=== PATIENT | male | born 1940 | race Caucasian/White ===

== ENCOUNTER → 2023-09-15 14:47 | Outpatient (REF) | payer OTHER, SELFPAY | LOC: DHCBC MAIN 14:47 | PROVIDERS: ATTENDING PHYSICIAN Internal Medicine Cardiovascular Disease; FAMILY PHYSICIAN Internal Medicine | DX: I50.30 Unspecified diastolic (congestive) heart failure (principal) | CPT/HCPCS: 93306 ==

== ENCOUNTER 2023-10-06 20:12 | Inpatient (IN) | payer OTHER, SELFPAY ==
[2023-10-06 16:21] VITALS: BP 108/67
[2023-10-06 17:08] LABS: % Basophils 0.5 % (0-2); % Eosinophils 1.2 % (0-6); % Immature Granulocytes 0.4 % (0-0.5); % Lymphocytes 19.3 % (20.5-51.1); % Monocytes 9.8 % (1.7-9.3); % Neutrophils 68.8 % (42.2-75.2); Absolute Eosinophils 0.1 10^3/uL (0-0.7); Absolute Lymphocytes 1.6 10^3/uL (1.2-3.4); Absolute Monocytes 0.8 10^3/uL (0.1-0.6); Absolute Neutrophils 5.8 10^3/uL (1.4-6.5); Hematocrit 42.4 % (39.0-52.0); Mean Corpuscular Hgb 30.9 pg (27.0-31.0); Mean Corpuscular Volume 93.6 fL (80.0-94.0); Mean Platelet Volume 10.2 fL (7.4-10.4); Nucleated Red Blood Cells % 0 % (-); Platelet Count 147 10^3/uL (130-400); Red Blood Cell Count 4.53 10^6/uL (4.70-6.10); Red Cell Dist. Width 16.2 % (11.5-14.5); White Blood Cell Count 8.4 10^3/uL (4.8-10.8)
[2023-10-06 17:20] LABS: APTT 29.9 Sec (23.4-35.0)
[2023-10-06 17:21] LABS: ALT (SGPT) 32 U/L (0-50); AST (SGOT) 38 U/L (17-59); Albumin 3.4 g/dl (3.5-5.0); Alkaline Phosphatase 66 U/L (38-126); Blood Urea Nitrogen 43 mg/dl (9-20); Calcium 8.8 mg/dl (8.4-10.2); Carbon Dioxide 26 mmol/L (22-30); Chloride 107 mmol/L (98-107); Glucose 103 mg/dl (70-99); Sodium 135 mmol/L (135-145); Total Bilirubin 1.6 mg/dl (0.2-1.3); Total Protein 6.6 g/dl (6.3-8.2); eGFR 39.75
[2023-10-06 17:32] LABS: NT-proBNP 22600 pg/ml; Troponin I 0.033 ng/ml
--- NOTE | 2023-10-06 18:39 | ED.GENMED ---
History of Present Illness
General
Chief Complaint: Swelling
Source: patient and records
Exam Limitations: none
Time Seen by Provider: 10/06/23 18:21
Nursing documentation reviewed up to this point in time: agreed with
Travel History
Have you had any contact with someone who has COVID-19?: No
Do you have any symptoms of coronavirus? Fever > 100 degrees, chills, cough, shortness of breath, sore throat, loss of taste or smell, muscle aches, or headache?: No
History of Present Illness
History of Present Illness:
Patient is a very pleasant 83-year-old male with heart failure mitral valve disease status post replacement in 2017 in [facility], did well postoperatively except for some urinary urgency, ultimately his diuretic was stopped until recently it appears? He
says through through the fall up until about [place] he was very active could do an hour on the treadmill without symptoms he believes he had a virus or something around [place] since then he has had fatigue dyspnea on exertion weight gain leg
edema restarted on his diuretic recently, he is unsure of the dose, called his glass fitter today was referred to the ER for evaluation here he has JVD 2-3+ lower extremity edema able to complete full sentences
Past History
Past History
ED Past Medical History: CHF and Valvular disease
ED Past Surgical History: Cardiac (Mitral valve repair 2017 at [facility]) and Orthopedic
Social History
Tobacco: Non-smoker
Alcohol: None
Drug: None
Personal:
Living: with family
Employment: Retired
Review of Systems
Review of Systems
All Other Systems: Not applicable
Constitutional: Reports weight gain and fatigue; Denies fever
EENT: Reports no symptoms
Respiratory: Reports trouble breathing; Denies cough
Cardiac: Reports other (Dyspnea on exertion); Denies chest pain
ABD/GI: Reports no symptoms
: Reports no symptoms
Musculoskeletal: Reports edema
Skin: Reports no symptoms
Neurological: Reports no symptoms
Phy Exam
Physical Exam
Physical Exam:
Physical Exam
General: Pleasant 83 male
Neck: Positive JVD
Heart: Regular
Lungs: Faint crackle
Abdomen: Not
Neuro: alert and oriented. no focal neurological deficits
Skin: no rash
Psychiatric: well kept. interactive and cooperative
Extremities: 2-3+ edema
Scores
Heart Failure Risk
Heart Failure Risk Score: Yes
History of Stroke or TIA: No
History of intubation for respiratory distress: No
Heart rate on ED arrival >/= 110: No
SaO2 <90% on arrival on room air: No
HR >/=110 during 3min walk test (or too ill to perform test): Yes
ECG has acute ischemic changes: Yes
Urea >/=12mmol/L (BUN 33.6mg/dL): No
Serum CO2>/=35mmol/L: No
Troponin I or T elevated to FL Level (0.4mg/dL): No
NT-proBNP >/=5,000ng/L (5,000pg/ml): Yes
HF Risk Score: 5
Admission Status: VERY HIGH RISK 39.8% Consider admission to hospital
Course
Orders/Labs/Results
Orders:
Orders
10/06/23 16:26
Electrocardiogram (*1) Urgent
Reason for Study: Other
Other Reason for Exam: swelling
CR Chest - 2 Views Urgent
Comment:
Reason For Exam: swelling
10/06/23 16:27
EKG- Treatment ONCE
10/06/23 16:55
Complete Blood Count/With Diff Urgent
Comprehensive Metabolic Panel Urgent
NT-proBNP Urgent
PTT Urgent
Troponin I Urgent
10/06/23 18:38
Furosemide [Lasix] 60 mg IV NOW STA
Abnormal Lab Results
10/06/23
16:55
RBC 4.53 L 10^6/uL
(4.70-6.10)
RDW 16.2 H %
(11.5-14.5)
Absolute Monos (auto) 0.8 H 10^3/uL
(0.1-0.6)
Lymphocytes % 19.3 L %
(20.5-51.1)
Monocytes % 9.8 H %
(1.7-9.3)
BUN 43 H mg/dl
(9-20)
Creatinine 1.7 H mg/dL
(0.7-1.3)
Glucose 103 H mg/dl
(70-99)
Total Bilirubin 1.6 H mg/dl
(0.2-1.3)
Albumin 3.4 L g/dl
(3.5-5.0)
10/06/23 16:55
10/06/23 16:55
Vital Signs
Initial and Last Documented VS:
Initial Vital Signs
Temp Pulse Resp BP Pulse Ox
97.3 F 52 20 108/67 97
10/06/23 16:21 10/06/23 16:21 10/06/23 16:21 10/06/23 16:21 10/06/23 16:21
Last Documented Vital Signs
Temp Pulse Resp BP Pulse Ox
97.3 F 52 20 108/67 97
10/06/23 16:21 10/06/23 16:21 10/06/23 16:21 10/06/23 16:21 10/06/23 16:21
MDM/Problems Addressed
Differential Diagnosis Includes:
Heart failure pneumonia renal failure valvular disease pericardial effusion
MDM/Problems Addressed:
Weight gain and edema dyspnea on exertion
Chronic conditions affecting care:
Valvular disease heart failure
Acute Exacerbation and/or Progression of Chronic Illness:
Valvular disease heart
*Radiology
Radiology exam reviewed: preliminary read by ED provider
*Pulse Oximetry
Patient hypoxic: no
*EKG
Interpreted by ED Provider?: Yes
Interpretation: abnormal
Comparison EKG: no comparison EKG present
Heart Rate: 78
Rate: normal
Rhythm: sinus
QRS Pattern: right bundle branch block
Ischemia: non-specific ST changes
*Information Assurance Officer Interpretation
Rate: normal
Interpretation: normal
Heart Rate: 78
Rhythm: sinus
*Critical Care Note
Total Time (30-74mins, 75-104mins- exclusive of procedures): 10
Data Reviewed
Review of Other/Old Records Reveals: Labs, Records and Discharge Summary
Source: patient and records
Update Note
Update Note:
Update patient with significant weight gain looks volume overloaded despite oral diuretic, will start on IV diuretic chest x-ray pending proBNP noted
715 chest x-ray noted looks volume overloaded fits clinically message sent to hospitalist and glass fitter
ED Attending Note
-
Portions of this chart may have been created with voice recognition software.� Occasional wrong word or��sound alike� substitutions may have occurred due to the inherent limitations of voice recognition software.
Discharge Plan
Departure
Patient Disposition: Admit
Date of Disposition: 10/06/23
Time of Disposition: 19:17
Admit to: Telemetry
Presentation/result/management discussed w/ accepting MD/DO: Hospitalist
Patient with high blood pressure during this ER visit?: No
Condition: Fair
Covid-19: Not Applicable
Discharge Problem:
Pleural effusion, Acute on chronic diastolic congestive heart failure
Prescriptions:
No Action
carvedilol 6.25 MG tablet
6.25 mg PO BID Qty: 60 0RF
apixaban [Eliquis] 5 MG tablet
5 mg PO BID Qty: 30 0RF
diltiazem HCl 120 MG capsule,extended release 24hr
120 mg PO DAILY Qty: 30 0RF
furosemide 20 MG tablet
20 mg PO DAILY Qty: 30 0RF
Interventions
Interventions:
*Risk Screen - Suicide Last Done: 10/06/23 16:21
*General Assessment Last Done: 10/06/23 16:21
*Neglect/Abuse Screening Last Done: 10/06/23 16:21
[2023-10-06 18:45] VITALS: BP 102/48
--- NOTE | 2023-10-06 19:34 | HPS.HSE ---
Family Physician
-
Family Physician:
Chief Complaint
-
fatigue, Longo, peripheral edema
History of Present Illness
83M HX MVP , had Porcine Bioprosthetic MVR in 2017 ( [place]) doing will for last 5- 6yrs. He used treadmill dailyat Gym till [place] when he had Viral like URTI but not Covid. Last couple of months, noted gradually swollen b/l LExs, associated with
fatigue, effort intolerance 2/2 Longo. No productive cough. No CP.
Seen by Card Dr Lucero , initiated PO lasix 20 mg daily and carvedilol 3.125mg BID.
He followed up today with Dr Weiss, sent to ER for worsening CHF fale with POS EJD.
Report gained weight 14- 15 lbs over last 2-3 weeks
Denied prior HX CHF till 2 weeeks ago.
Medical History
Past Medical History
Past Medical History: Reports CHF and Valvular Disease (MVR in 2017 in [place] for MR )
Past Surgical History: Reports Cardiac (MVR in 2017 ) and Orthopedic
Social History
Tobacco: Non-smoker
Alcohol: None
Personal:
Living: With Family
Family History
Family History: Not pertinent
Allergies / Home Medications
Allergies reflects when Allergies were last updated in [employer].
Home Medications with original date entered in [employer]
Allergy/Medication List:
Allergies
Allergy/AdvReac Type Severity Reaction Status Date / Time
No Known Allergies Allergy Verified 10/06/23 16:21
Home Medications
furosemide 20 mg tablet 20 mg PO DAILY #30 tabs 02/24/17
carvedilol 3.125 mg tablet 3.125 mg PO BID 10/06/23
Review of Systems
-
Constitutional: Reports No Symptoms
EENT: Reports No Symptoms
Respiratory: Reports See HPI and Trouble Breathing
Cardiac: Reports See HPI
Abdomen/GI: Reports No Symptoms
: Reports No Symptoms
Musculoskeletal: Reports No Symptoms
Skin: Reports No Symptoms
Neurological: Reports No Symptoms
Endocrine: Reports No Symptoms
Hematologic/Lymphatic: Reports No Symptoms
Psych: Reports No Symptoms
Physical Exam
Vital Signs
Vital Signs
Temp Pulse Resp BP Pulse Ox
97.3 F 52 20 108/67 97
10/06/23 16:21 10/06/23 16:21 10/06/23 16:21 10/06/23 16:21 10/06/23 16:21
Physical Exam
General: No Apparent Distress
HEENT: Anicteric and PERRLA
Respiratory: Rales (Rt base ) and Other (symmetric AE)
Cardiac: S1/S2, Regular Rhythm, Murmur (soft systolic mm at apex ) and JVD (significant EJD )
Breast: Deferred by me
GI: Soft, Non Tender, Non Distended and Normal Bowel Sounds
Rectal: Deferred by Provider
Musculoskeletal: Edema, Right Upper Extremity (2+) and Edema, Left Lower Extremity (2+)
Skin: Warm
Neuro: AO x 3 and No Motor Deficits
Hematologic/Lymphatic: Lymphadenopathy
Psych: Calm and Intact Judgment/Insight
Laboratory Results
-
10/06/23 16:55
10/06/23 16:55
Laboratory Results
APTT 29.9 Sec (23.4-35.0) 10/06/23 16:55
Total Bilirubin 1.6 mg/dl (0.2-1.3) H 10/06/23 16:55
AST 38 U/L (17-59) 10/06/23 16:55
ALT 32 U/L (0-50) 10/06/23 16:55
Alkaline Phosphatase 66 U/L (38-126) 10/06/23 16:55
Troponin I 0.033 ng/ml 02/21/24 16:55
Data Reviewed
-
Diagnostic Radiology: Image Personally Visualized and interpreted
Medical Tests (Nuc Med, Echo, EKG etc): Report Reviewed by me
Lab Data: Labs Reviewed by me
Old Records: Reviewed
Impression/Plan
-
Vital Signs
Temp Pulse Resp BP Pulse Ox
97.3 F 52 20 108/67 97
10/06/23 16:21 10/06/23 16:21 10/06/23 16:21 10/06/23 16:21 10/06/23 16:21
Data
Nl CBC
K5
Cr 1.7 - 0.8 in 2017
eGFR 39
TB 1.6
Pending final CXR Report
pBNP 0.33
pBNP 50934
EKG
SINUS RHYTHM WITH FREQUENT PREMATURE VENTRICULAR COMPLEXES
LOW VOLTAGE QRS
INCOMPLETE RIGHT BUNDLE BRANCH BLOCK
LEFT ANTERIOR FASCICULAR BLOCK
CANNOT RULE OUT ANTERIOR INFARCT , AGE UNDETERMINED
T WAVE ABNORMALITY, CONSIDER LATERAL ISCHEMIA
ABNORMAL ECG
WHEN COMPARED WITH ECG OF 21-FEB-2017 10:36,
SIGNIFICANT CHANGES HAVE OCCURRED
2017 ECHO per DC summary
LVEF 55%.
Last hospitalist admission: 02/21/17 - 02/24/17 DC Dxs
1. Acute on chronic diastolic heart failure.
2. Mitral valve insufficiency.
3. Pleural effusion.
4. Atrial fibrillation.
ASSESSMENT & PLAN
fatigue, Longo, peripheral edema
Acute on subacute CHF - HF mixed HF vs HFpEF vs. Biventricular CHF
Report gained weight 14- 15 lbs over last 2-3 weeks
Hypotensive
HX MVR in 2017 [place]
In NSR - denied Af in the past
- IV Lasix
- Held carvedilol to give room for lasix and current hypotension for now
- daily BMP and LFTs
- daily Wt
- ECHO in AM
- B/L Liliane US to complete w/u
- CBC card consult
Hypotensive s/p IV Lasix
- Held carvedilol for now
- fall precaution
- will consider Midodrine
- Observing off BB or ARB
Renal insufficiency- Cardiorenal syndrome or pre renal TAVO
- Avoid nephrotoxic
- closely monitor RFTs
HX MVR in [place] 2016
- await ECHO
In NSR
DVT Px: LMWH
Code: Full code
IP TLM
[2023-10-06] MEDS: LASIX 60 MG IV (19:55)
[2023-10-06 20:15] LABS: COVID-19 Antigen Negative (Negative)
[2023-10-06 21:21] VITALS: BP 126/84; BMI 22.9
[2023-10-06 23:09] VITALS: BP 120/77
[2023-10-07 00:11] LABS: Troponin I 0.044 ng/ml
[2023-10-07 03:07] VITALS: BP 117/78
--- NOTE | 2023-10-07 03:54 | PTCARENOTE ---
Tele monitor alarming VTach. Pt having frequent runs of PVCs. Pt asymptomatic and VSS. BP 117/78, HR 78, 95% RA. CORINA Kruse notified. Instructed to get labs for morning. Will continue plan of care.
[2023-10-07 05:54] LABS: Troponin I 0.045 ng/ml
[2023-10-07 05:55] LABS: ALT (SGPT) 33 U/L (0-50); AST (SGOT) 59 U/L (17-59); Albumin 3.5 g/dl (3.5-5.0); Alkaline Phosphatase 82 U/L (38-126); Blood Urea Nitrogen 43 mg/dl (9-20); Carbon Dioxide 19 mmol/L (22-30); Chloride 110 mmol/L (98-107); Direct Bilirubin 0.5 mg/dl (0.0-0.4); Estimated Creatinine Clearance 35 ml/min; Glucose 74 mg/dl (70-99); HDL Cholesterol 38 mg/dl; LDL Cholesterol, Calculated 105 mg/dl; Magnesium 2.4 mg/dl (1.6-2.3); Potassium 4.5 mmol/L (3.5-5.1); Sodium 138 mmol/L (135-145); Total Bilirubin 2.2 mg/dl (0.2-1.3); Total Cholesterol 161 mg/dl (50-199); Total Protein 6.7 g/dl (6.3-8.2); Triglyceride 91 mg/dl (10-149); Very Low Density Lipoprotein 18 mg/dl (0-30); eGFR 46.19
[2023-10-07 06:00] VITALS: BMI 22.3
[2023-10-07 07:37] VITALS: BP 112/77
[2023-10-07 08:31] VITALS: BMI 22.3
--- NOTE | 2023-10-07 09:05 | W.PN.HOSP.TC ---
Today's Communication/Plan
-
Continue IV diuresis
Awaiting results of 2D echocardiogram
Had issues with carvedilol as outpatient
Assessment / Plan
Assessment / Plan
83M HX MVP , had Porcine Bioprosthetic MVR in 2016 ( [place]) doing will for last 5- 6yrs. He used treadmill dailyat� [employer] till [place] when he had� Viral like URTI but not Covid.
Last couple of months, noted gradually swollen b/l LExs, associated with fatigue, effort intolerance 2/2 Longo. No productive cough. No CP. Apparently had outpatient 2D echocardiogram showing moderately decreased ejection fraction from 2 weeks ago
under his prior name of Sabgretel
Seen by Card Dr Lucero , initiated PO lasix 20 mg daily and carvedilol 3.125mg BID.
He followed up today with Dr Weiss, sent to ER for worsening CHF fale with POS EJD.
Report gained weight 14- 15 lbs over last 2-3 weeks
Denied prior HX CHF till 2 weeeks ago.
ASSESSMENT & PLAN
fatigue, Longo, peripheral edema
Acute� on subacute CHF - HF mixed HF vs HFpEF vs. Biventricular CHF
Report gained weight 14- 15 lbs over last 2-3 weeks/lost 3 kg overnight with diuresis
Hypotensive
HX MVR in 2016 [place]
In NSR - denied Af in the past
- IV Lasix
- Held carvedilol� to give room for lasix and current hypotension for now
- daily BMP and LFTs
- daily Wt
- ECHO in AM but apparently was done under his prior name 2 weeks ago and showed significant reduction in EF
- B/L Liliane US to complete w/u was negative for DVT
- CBC card consult
Hypotensive s/p IV Lasix
- Held carvedilol for now
- fall precaution
- will consider Midodrine
- Observing off BB or ARB
Renal insufficiency- Cardiorenal syndrome ? Has some improvement after diuresis overnight
- Avoid nephrotoxic
-Creatinine now 1.5 from 1.7 on presentation
- closely monitor RFTs
HX MVR in 2016
- await� ECHO
In NSR
DVT Px: LMWH
Code: Full code
IP TLM
Anticipated Discharge: 24 - 48 hours
Subjective/Interval History
-
Date of Service: October 07, 2023
Seems to be breathing easier from initial presentation last night had brisk diuresis overnight and weight loss
Objective Data
-
Labs:
Laboratory Results
10/07/23
05:10
Sodium 138
Potassium 4.5
Chloride 110 H
Carbon Dioxide 19 L
BUN 43 H
Creatinine 1.5 H
Glucose 74
Calcium 9.0
Total Bilirubin 2.2 H
AST 59
ALT 33
Alkaline Phosphatase 82
Vital Signs:
Vital Signs
Temp Pulse Resp BP Pulse Ox
97.4 F 69 16 112/77 94
10/07/23 07:37 10/07/23 07:37 10/07/23 07:37 10/07/23 07:37 10/07/23 07:37
I&O
10/06/23 10/07/23 10/08/23
06:59 06:59 06:59
Output Total 1000 / 1000
Balance -1000 / -1000
Review of Systems
-
History Source: Patient
Constitutional: Reports Weight Gain
EENT: Reports No Symptoms Reported
Respiratory: Reports Trouble Breathing
Cardiac: Reports No Symptoms; Denies Palpitations
Physical Exam
-
Respiratory: Crackles
Cardiac: Irregular Rhythm (Frequent PVCs)
GI: Soft, Nontender and Nondistended
Neuro: Awake, Alert and Oriented
Psych: Calm
Data Reviewed
-
Total Time Spent with Patient (in minutes): 45
Labs: Labs Reviewed by me (Indeterminate troponin elevation of 0.044/bilirubin 2.2/creatinine trending down from 1.7-1.5 this morning)
--- NOTE | 2023-10-07 09:12 | W.PN.CD ---
Addendum entered and electronically signed by Manuel Lucero MD 10/07/23 12:37:
I saw and examined the patient.
The SHEET METAL FOREMAN's note was reviewed and I agree with the note.
Comment: 83M with newly discovered severe CM. He did not do well with outpatient Rx and is now admitted for treatment.
- Diurese to goal weight (unknown but around 140 lbs per patient)
- Add GDMT as possible with BP
- Eventual left heart catheterization (no obstructive CAD in 2017)
- There is a question of atrial thrombus -> I will add apixaban 2.5 po BID now & hold for [facility] (timing TBD). NEVAEH AM
.
Addendum entered and electronically signed by CORINA Haynes 10/07/23 10:28:
I discussed all with his Fernando.
Original Note:
Today's Communication / Plan
-
-increase lasix to BID
-resume coreg
-eventual GDMT
Impression / Plan
-
Assessment/Plan: 83 y/o male (patient of Dr. Lucero) who first was seen in our office in 2017 with new AF and severe MR due to MVP. He was living in [facility] and had tissue MVF. AF resolved and he did not take AC. He recently resumed seeing
Jazmine 09/15/23 and echo was profoundly abnormal- see below. Coreg and lasix were started, but he had worsened dyspnea, orthopnea, edema, and fatigue. Renal function worsened as well. He is now here for inpatient management of CHF.
Iyphi-dh-dihnsky HFrEF: improving with diuresis
-feeling improved- weight down, SOB better, edema better
-echo 09/15/23: Severely reduced left ventricular systolic function. Global severe hypokinesis. Left ventricular ejection fraction is 10-15%.�Top normal right ventricular size with severely reduced systolic function. Severe biatrial
enlargement.�Bioprosthetic mitral valve replacement is structurally and functionally normal. Moderate tricuspid regurgitation.�The IVC is dilated and does not collapse, suggesting high filling pressure.�Estimated pulmonary artery pressure of 51 mmHg
assuming a right atrial pressure of 15 mmHg.
-IV diuresis, which requires intensive monitoring- increase to BID
-Coreg held for low BP's per Dr. Kenney- will resume since BP is currently acceptable and patient with ectopy on monitor
-Over time, GDMT as able
-reports dry weight at 130-135 lbs. Currently 142 lbs.
-CHF consult, sodium/fluid restriction
-consider ischemic eval
hx Bio MVR:
-stable by echo
Abnormal troponin:
-suspect non-ischemic myocardial injury in setting of CHF exacerbation
-can trend to peak
TAVO:
-creat 1.3 in early Sep as OP, came in at 1.7- improving with diuresis
Will call and update patient's at his request
Physical Exam
Vital Signs/Labs
Vital Signs
Temp Pulse Resp BP Pulse Ox
97.4 F 69 16 112/77 94
10/07/23 07:37 10/07/23 07:37 10/07/23 07:37 10/07/23 07:37 10/07/23 07:37
10/06/23 10/07/23 10/08/23
06:59 06:59 06:59
Actual Weight 64.637 kg
10/06/23 16:55
10/07/23 05:10
APTT 29.9 Sec (23.4-35.0) 10/06/23 16:55
Magnesium 2.4 mg/dl (1.6-2.3) H 10/07/23 05:10
Triglycerides 91 mg/dl (10-149) 10/07/23 05:10
LDL Cholesterol, Calc 105 mg/dl 10/07/23 05:10
VLDL Cholesterol, Calc 18 mg/dl (0-30) 10/07/23 05:10
HDL Cholesterol 38 mg/dl 10/07/23 05:10
10/06/23
16:55
Cfl-Z-Mgktksxczoz Pept [id number]
LAB Results
10/06/23 10/06/23 10/07/23
16:55 23:33 05:10
Troponin I 0.033 0.044 H* D 0.045 H*
Physical Exam
Constitutional: No acute distress
EENT: Anicteric
Cardiovascular: Rhythm & rate is regular and Pedal edema present (mild BLE edema)
Respiratory: Other (diminished to bases)
GI: Soft, Non tender and Normal bowel sounds
Neuro/Psych: AO x 3
Other: Skin (warm and dry)
Data Reviewed
-
Date of Service: October 07, 2023
EKG: Other (SR with ectopy)
X-Ray/CT/US/MRI/NUC/PET: Report Reviewed by me (Small to moderate right pleural effusion. Small left pleural effusion. On the frontal view, hazy increased opacity involving the left midlung, most likely representing fluid extending into the major
fissure when correlating with the lateral view.)
Medical Tests (PFT, Pathology etc): Report Reviewed by me (recent echo as noted. )
Labs: Labs Reviewed by me
[2023-10-07] MEDS: LASIX 40 MG IV ×2 (09:30→17:34)
[2023-10-07] MEDS: COREG 3.125 MG PO ×2 (10:59→20:23)
[2023-10-07 11:00] VITALS: BP 103/70
[2023-10-07 11:30] LABS: Troponin I 0.032 ng/ml
[2023-10-07 15:00] VITALS: BP 95/63
--- NOTE | 2023-10-07 16:34 | CM ---
Alert awake oriented patient who lives with his Fernando who lives in a 2 story home with 0 step to enter and 12 steps to bed and bathroom. He is independent in driving and in all activities of daily living.He was offered VN he declined need.No
adaptive devices.
No VN hx / No SNF history
Pharmacy Medicine [facility]
PCP DR Garibay
PLAN Home Declined VN
[2023-10-07 20:11] VITALS: BP 101/68
[2023-10-07] MEDS: ELIQUIS 2.5 MG PO (20:23)
[2023-10-07 23:31] VITALS: BP 110/72
[2023-10-08 03:47] VITALS: BP 102/70
[2023-10-08 05:57] LABS: Blood Urea Nitrogen 41 mg/dl (9-20); Calcium 8.6 mg/dl (8.4-10.2); Carbon Dioxide 25 mmol/L (22-30); Chloride 105 mmol/L (98-107); Estimated Creatinine Clearance 40 ml/min; Glucose 77 mg/dl (70-99); Magnesium 2.3 mg/dl (1.6-2.3); Potassium 3.9 mmol/L (3.5-5.1); Sodium 135 mmol/L (135-145); eGFR 54.85
[2023-10-08 06:00] VITALS: BMI 21.9
[2023-10-08 07:00] VITALS: BP 98/67
[2023-10-08] MEDS: DESENEX/MITRAZOL/ZEASORB 1 APPLIC TOPICAL ×2 (08:34→21:03)
[2023-10-08] MEDS: LASIX 40 MG IV (08:34)
[2023-10-08] MEDS: ELIQUIS 2.5 MG PO ×2 (08:35→21:03)
[2023-10-08] MEDS: FLUSH (NSS) 2 FLUSH IV (08:36)
--- NOTE | 2023-10-08 09:36 | W.PN.HOSP.TC ---
Today's Communication/Plan
-
Continues with IV diuresis but hold his carvedilol this morning due to to patient tolerance will defer to cardiology
Cardiorenal status continues to improve with diuresis
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
Assessment / Plan
Assessment / Plan
83M HX MVP , had Porcine Bioprosthetic MVR in 2016 ( [place]) doing will for last 5- 6yrs. He used treadmill dailyat� [employer] till when he had� Viral like URTI but not Covid.
Last couple of months, noted gradually swollen b/l LExs, associated with fatigue, effort intolerance 2/2 Longo. No productive cough. No CP. Apparently had outpatient 2D echocardiogram showing moderately decreased ejection fraction from 2 weeks ago
under his prior name of Sabella
Seen by Card Dr Lucero , initiated PO lasix 20 mg daily and carvedilol 3.125mg BID.
He followed up today with Dr Wesis, sent to ER for worsening CHF fale with POS EJD.
Report gained weight 14- 15 lbs over last 2-3 weeks
Denied prior HX CHF till 2 weeeks ago.
ASSESSMENT & PLAN
fatigue, Longo, peripheral edema
Acute� on subacute CHF - HF mixed HF vs HFpEF vs. Biventricular CHF
Report gained weight 14- 15 lbs over last 2-3 weeks/lost 3 kg overnight with diuresis
Hypotensive
HX MVR in 2016 [place]
In NSR - denied Af in the past
- IV Lasix
- Held carvedilol� to give room for lasix and current hypotension for now/continues to have issues with carvedilol due to intolerance albumin this morning
- daily BMP and LFTs
- daily Wt
- ECHO in AM but apparently was done under his prior name 2 weeks ago and showed significant reduction in EF/repeated yesterday and again shows EF of 20
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
- B/L Liliane US to complete w/u was negative for DVT
-NEVAEH this a.m./Eliquis held possible LHC
- CBC card consult
Hypotensive s/p IV Lasix
- Held carvedilol for now
- fall precaution
- will consider Midodrine
- Observing off BB or ARB
Renal insufficiency- Cardiorenal syndrome ? Has some improvement after diuresis overnight
- Avoid nephrotoxic
-Creatinine now 1.5 from 1.7 on presentation>> 1.3
- closely monitor RFTs
HX MVR in 2016
- await� ECHO
In NSR
DVT Px: LMWH
Code: Full code
IP TLM
Anticipated Discharge: 24 - 48 hours
Subjective/Interval History
-
Date of Service: October 08, 2023
Continues to state that he does not feel right while he is on carvedilol which started as an outpatient did not feel right there either after he takes it his feels that he is slurring his words. Blood pressure was low this morning and has been
held. Continues to have good diuretic output weight down to 63.2 kg
Objective Data
-
Labs:
Laboratory Results
10/08/23
05:04
Sodium 135
Potassium 3.9
Chloride 105
Carbon Dioxide 25
BUN 41 H
Creatinine 1.3
Glucose 77
Calcium 8.6
Vital Signs:
Vital Signs
Temp Pulse Resp BP Pulse Ox
97.8 F 76 17 98/60 97
10/08/23 07:00 10/08/23 08:34 10/08/23 07:00 10/08/23 08:34 10/08/23 07:00
I&O
10/07/23 10/08/23 10/09/23
06:59 06:59 06:59
Intake Total 960 / 960
Output Total 1000 / 1000 850 / 850
Balance -1000 / -1000 110 / 110
Review of Systems
-
History Source: Patient
All other systems: Not reviewed unless documented
Constitutional: Reports Weight Gain
EENT: Reports No Symptoms Reported
Respiratory: Reports Trouble Breathing
Cardiac: Reports No Symptoms
Physical Exam
-
General: Well Developed
HEENT: Normocephalic
Respiratory: Crackles
Cardiac: Irregular Rhythm
GI: Soft, Nontender and Nondistended
Genito-urinary: No Costovertebral Tender
Musculoskeletal: No Clubbing, Edema, Right Lower Extrem and Edema, Left Lower Extrem
Neuro: Awake, Alert and Oriented
Psych: Calm
Data Reviewed
-
Total Time Spent with Patient (in minutes): 45
Labs: Labs Reviewed by me (White count 8.4/BUN 41 creatinine has improved now down to 1.3)
--- NOTE | 2023-10-08 10:33 | CM ---
Patient out of room for testing today. CM will continue to follow for discharge planning needs.
Plan; TBD
[2023-10-08] MEDS: COREG PO (11:37)
--- NOTE | 2023-10-08 11:58 | W.PN.CD ---
Today's Communication / Plan
-
- Let's lower diuretic as he approaches dry weight. Hopefully, this will allow more GDMT
- add SLGT2i
- Reviewed NEVAEH and discussed with radiology re: CT vs MRI for characterization. MRI would be ideal but CT faster. Mr. Moreau is not sure he could tolerate MRI, so we will start with contrast CT
- continue apixaban
- no more carvedilol
Impression / Plan
-
Assessment/Plan: 83M with newly discovered severe CM. He did not do well with outpatient Rx was admitted for treatment. TTE/NEVAEH show LA mass on unclear etiology
Dthcm-ps-azpxyon HFrEF:
- Let's lower diuretic as he approaches dry weight. Hopefully, this will allow more GDMT
- daily weights, I/O, Cr
CM EF 10%
- carvedilol as above
- suspect we would see shock numbers if we got a cardiac index
- add SLGT2i
- eventual ARNi/MRA if possible
LA mass
- TTE reviewed and NEVAEH confirms mass. Clinically, thrombus makes the most sense but NEVAEH not classic for that
- Reviewed NEVAEH and discussed with radiology re: CT vs MRI for characterization. MRI would be ideal but CT faster. Mr. Moreau is not sure he could tolerate MRI, so we will start with contrast CT
- continue apixaban
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
Abnormal troponin:
- suspect non-ischemic myocardial injury in setting of CHF exacerbation
- eventual ischemic evaluation
TAVO: improving with diuresis
50 minutes of care including review of NEVAEH with Dr. Barreto and discussion with Dr. Patterson from radiology.
Subjective: He develops fatigue and anhedonia with carvedilol (tried twice). No CP or palps
Physical Exam
Vital Signs/Labs
Vital Signs
Temp Pulse Resp BP Pulse Ox
36.6 C 76 17 98/60 97
10/08/23 07:00 10/08/23 08:34 10/08/23 07:00 10/08/23 08:34 10/08/23 07:00
10/07/23 10/08/23 10/09/23
06:59 06:59 06:59
Actual Weight 142 lb 8 oz 139 lb 8 oz
10/06/23 16:55
10/08/23 05:04
APTT 29.9 Sec (23.4-35.0) 10/06/23 16:55
Magnesium 2.3 mg/dl (1.6-2.3) 10/08/23 05:04
Triglycerides 91 mg/dl (10-149) 10/07/23 05:10
LDL Cholesterol, Calc 105 mg/dl 10/07/23 05:10
VLDL Cholesterol, Calc 18 mg/dl (0-30) 10/07/23 05:10
HDL Cholesterol 38 mg/dl 10/07/23 05:10
10/06/23
16:55
Epy-H-Iipguwhjuru Pept 53012
LAB Results
10/06/23 10/06/23 10/07/23
16:55 23:33 05:10
Troponin I 0.033 0.044 H* D 0.045 H*
10/07/23
10:57
Troponin I 0.032 D
Physical Exam
Constitutional: No acute distress and Comfortable
EENT: Anicteric and Moist mucous membranes
Cardiovascular: Rhythm & rate is regular, Pedal edema is absent, Systolic murmur absent and Diastolic murmur absent
Respiratory: Respiratory effort normal
GI: Soft, Distention absent, Non tender and Normal bowel sounds
Neuro/Psych: Alert
Other: Skin
Data Reviewed
-
Date of Service: October 08, 2023
Echo: Tracing Personally Visualized and interpreted and Other (LA Mass as above)
[2023-10-08 12:42] VITALS: BP 143/71
[2023-10-08] MEDS: FARXIGA 10 MG PO (12:52)
[2023-10-08 15:00] VITALS: BP 98/62
[2023-10-08 19:30] VITALS: BP 113/58
[2023-10-08 23:39] VITALS: BP 102/57
[2023-10-09 03:20] VITALS: BP 105/67
[2023-10-09 06:00] VITALS: BMI 21.9
[2023-10-09 06:33] LABS: Blood Urea Nitrogen 48 mg/dl (9-20); Calcium 8.9 mg/dl (8.4-10.2); Carbon Dioxide 27 mmol/L (22-30); Chloride 104 mmol/L (98-107); Estimated Creatinine Clearance 34 ml/min; Glucose 87 mg/dl (70-99); Potassium 4.1 mmol/L (3.5-5.1); Sodium 135 mmol/L (135-145); eGFR 46.19
[2023-10-09 07:30] VITALS: BP 97/62
[2023-10-09] MEDS: FARXIGA 10 MG PO (08:48)
[2023-10-09] MEDS: ELIQUIS 2.5 MG PO ×2 (08:48→20:00)
[2023-10-09] MEDS: DESENEX/MITRAZOL/ZEASORB 1 APPLIC TOPICAL ×2 (08:48→20:00)
--- NOTE | 2023-10-09 09:15 | W.PN.HOSP.TC ---
Today's Communication/Plan
-
He remains with soft blood pressures
Off carvedilol
And no Lasix/24 hours/still appears fluid overloaded
Creatinine up to 1.5 after IV contrast should be monitored for the next 48 hours for 'postcontrast nephropathy
Assessment / Plan
Assessment / Plan
83M HX MVP , had Porcine Bioprosthetic MVR in 2016 ( [place]) doing will for last 5- 6yrs. He used treadmill dailyat� [employer] till when he had� Viral like URTI but not Covid.
Last couple of months, noted gradually swollen b/l LExs, associated with fatigue, effort intolerance 2/2 Longo. No productive cough. No CP. Apparently had outpatient 2D echocardiogram showing moderately decreased ejection fraction from 2 weeks ago
under his prior name of Sabgretel
Seen by Card Dr Lucero , initiated PO lasix 20 mg daily and carvedilol 3.125mg BID.
He followed up today with Dr Weiss, sent to ER for worsening CHF fale with POS EJD.
Report gained weight 14- 15 lbs over last 2-3 weeks
Denied prior HX CHF till 2 weeeks ago.
ASSESSMENT & PLAN
fatigue, Longo, peripheral edema
Acute� on subacute CHF - HF mixed HF vs HFpEF vs. Biventricular CHF
Report gained weight 14- 15 lbs over last 2-3 weeks/lost 3 kg overnight with diuresis
Hypotensive
HX MVR in 2016
In NSR - denied Af in the past
- IV Lasix
- Held carvedilol� to give room for lasix and current hypotension for now/continues to have issues with carvedilol due to intolerance albumin this morning
- daily BMP and LFTs
- daily Wt
- ECHO in AM but apparently was done under his prior name 2 weeks ago and showed significant reduction in EF/repeated yesterday and again shows EF of 20
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
- B/L Liliane US to complete w/u was negative for DVT
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
-Apixaban 2.5 twice daily
- CBC card consult
Hypotensive s/p IV Lasix
- Held carvedilol for now
- fall precaution
- will consider Midodrine
- Observing off BB or ARB
Renal insufficiency- Cardiorenal syndrome ? Has some improvement after diuresis overnight
- Avoid nephrotoxic
-Creatinine now 1.5 from 1.7 on presentation>> 1.3
- closely monitor RFTs
HX MVR in 2016
- await� ECHO
In NSR
DVT Px: LMWH
Code: Full code
IP TLM
Anticipated Discharge: 24 - 48 hours
Subjective/Interval History
-
Date of Service: October 09, 2023
Remains with borderline hyper hypotension/discussed results of CT and atrial thrombus.
Objective Data
-
Labs:
Laboratory Results
10/09/23
05:11
Sodium 135
Potassium 4.1
Chloride 104
Carbon Dioxide 27
BUN 48 H
Creatinine 1.5 H
Glucose 87
Calcium 8.9
Vital Signs:
Vital Signs
Temp Pulse Resp BP Pulse Ox
97.6 F 87 16 97/62 100
10/09/23 07:30 10/09/23 07:30 10/09/23 07:30 10/09/23 07:30 10/09/23 07:30
I&O
10/08/23 10/09/23 10/10/23
06:59 06:59 06:59
Intake Total 960 / 960 780 / 780
Output Total 850 / 850 1625 / 1625
Balance 110 / 110 -845 / -845
Review of Systems
-
History Source: Patient
All other systems: Not reviewed unless documented
Respiratory: Reports No Symptoms
Cardiac: Reports No Symptoms
Physical Exam
-
General: No Apparent Distress
HEENT: Normocephalic
Respiratory: Clear to Auscultation
Cardiac: Irregular Rhythm and Murmur
GI: Soft and Nontender
Musculoskeletal: Edema, Right Lower Extrem and Edema, Left Lower Extrem
Neuro: Awake, Alert, Oriented and AO x 3
Data Reviewed
-
Total Time Spent with Patient (in minutes): 45
Medical Tests (Nuc Med, Echo etc): Report Reviewed by me (CT of the chest/left atrial mass measuring 5.6 x 5.1 x 4.4 cm appears to conform to the shape of the left atrium left atrial thrombus)
Labs: Labs Reviewed by me (Creatinine 1.5 from 1.3)
[2023-10-09 11:21] VITALS: BP 105/70
--- NOTE | 2023-10-09 11:44 | W.PN.CD ---
Addendum entered and electronically signed by Aman Ramires MD 10/09/23 15:49:
I saw and examined the patient.
The OUTB[employer] SAL[employer] EXECUTIVE's note was reviewed and I agree with the note.
Comment: Heart failure is improving. 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
Original Note:
Today's Communication / Plan
-
continue Eliquis and Farxiga
Impression / Plan
-
Assessment/Plan: 83M with newly discovered severe CM. He did not do well with outpatient Rx was admitted for treatment. TTE/NEVAEH show LA mass on unclear etiology
Htdny-ot-xtyqmuz HFrEF:
- improved with diuresis.
- Lasix held for hypotension, monitor.
- daily weights, I/O, Cr
CM EF 10%
- did not tolerate carvedilol
- suspect we would see shock numbers if we got a cardiac index
- added Farxiga
- eventual ARNi/MRA if possible, though limited by renal insufficiency
LA mass
- TTE reviewed and NEVAEH confirms mass. Clinically, thrombus makes the most sense but NEVAEH not classic for that
- Chest CT shows left atrial mass conform to the shape of LA, represents LA thrombus rather than neoplasm
- continue Eliquis
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
Abnormal troponin:
- suspect non-ischemic myocardial injury in setting of CHF exacerbation
- eventual ischemic evaluation
TAVO: improving with diuresis
Subjective:
He developed fatigue and anhedonia with carvedilol (tried twice).
sleeping, easily aroused, denies cardiac symptoms
Physical Exam
Vital Signs/Labs
Vital Signs
Temp Pulse Resp BP Pulse Ox
97.5 F 86 16 105/70 95
10/09/23 11:21 10/09/23 11:21 10/09/23 11:21 10/09/23 11:21 10/09/23 11:21
10/08/23 10/09/23 10/10/23
06:59 06:59 06:59
Actual Weight 63.276 kg 63.304 kg
10/06/23 16:55
10/09/23 05:11
APTT 29.9 Sec (23.4-35.0) 10/06/23 16:55
Magnesium 2.3 mg/dl (1.6-2.3) 10/08/23 05:04
Triglycerides 91 mg/dl (10-149) 10/07/23 05:10
LDL Cholesterol, Calc 105 mg/dl 10/07/23 05:10
VLDL Cholesterol, Calc 18 mg/dl (0-30) 10/07/23 05:10
HDL Cholesterol 38 mg/dl 10/07/23 05:10
10/06/23
16:55
Ogd-H-Acqcbqqllgx Pept [id number]
LAB Results
10/06/23 10/06/23 10/07/23
16:55 23:33 05:10
Troponin I 0.033 0.044 H* D 0.045 H*
10/07/23
10:57
Troponin I 0.032 D
Physical Exam
Constitutional: No acute distress and Other (frail, elderly)
EENT: Anicteric
Cardiovascular: Rhythm & rate is regular
Respiratory: Respiratory effort normal
GI: Soft and Non tender
Neuro/Psych: AO x 3
Other: Skin (warm, dry)
Data Reviewed
-
Date of Service: October 09, 2023
Medical Decision Making: Reviewed Test Results
EKG: Tracing Personally Visualized and interpreted
X-Ray/CT/US/MRI/NUC/PET: Report Reviewed by me
Labs: Labs Reviewed by me
[2023-10-09 16:00] VITALS: BP 123/57
[2023-10-09 19:05] VITALS: BP 108/61
[2023-10-09 23:10] VITALS: BP 115/77
[2023-10-10 03:42] VITALS: BP 107/81
[2023-10-10 06:00] VITALS: BMI 21.9
[2023-10-10 07:00] VITALS: BP 111/70
[2023-10-10 07:33] LABS: Blood Urea Nitrogen 47 mg/dl (9-20); Calcium 9.4 mg/dl (8.4-10.2); Carbon Dioxide 27 mmol/L (22-30); Chloride 102 mmol/L (98-107); Estimated Creatinine Clearance 39 ml/min; Glucose 90 mg/dl (70-99); Sodium 136 mmol/L (135-145); eGFR 54.85
[2023-10-10] MEDS: DESENEX/MITRAZOL/ZEASORB 1 APPLIC TOPICAL ×2 (07:47→20:36)
[2023-10-10] MEDS: FARXIGA 10 MG PO (07:47)
[2023-10-10] MEDS: ELIQUIS 2.5 MG PO ×2 (07:47→20:36)
--- NOTE | 2023-10-10 08:06 | W.PN.CD ---
Addendum entered and electronically signed by Aman Ramires MD 10/10/23 08:20:
EP
Hx AFib
Short runs of AT seen
Frequent PVCs seen
Multiple couplets and short NSVT seen
Not sure his life expectancy is 1 year. Probably not an ICD candidate.
Original Note:
Today's Communication / Plan
-
Lasix 60 mg PO daily
Follow BMP
Continue SGLT2-I
Check urinalysis, urine very dark
Impression / Plan
-
Assessment/Plan: 83M with newly discovered severe CM. He did not do well with outpatient Rx was admitted for treatment. TTE/NEVAEH show LA mass on unclear etiology
Gaamd-jq-fgpmvdz HFrEF with a severe cardiomyopathy (etiology uncertain), LVEF 10%
- improved with diuresis.
- Will resume Lasix at new PO dose: 60 mg PO daily (had been held for Low BP)
- Still has some edema
- Will need to pick a goal weight at discharge
- GDMT so far: loop diuretic and SGLT2-I. He will not take/cannot tolerate HF BB. Later consider MRA, RAAS (ABDIRASHID-I/ARB/ARNI)
Dark urine
- Check urinalysis
LA mass
- TTE reviewed and NEVAEH confirms mass. Clinically, thrombus makes the most sense but NEVAEH not classic for that
- Chest CT shows left atrial mass conform to the shape of LA, represents LA thrombus rather than neoplasm. MRI would be best to suggest tissue characteristic (no role for tissue Dx at this time)
- continue Eliquis
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
Abnormal troponin:
- suspect non-ischemic myocardial injury in setting of CHF exacerbation
- eventual ischemic evaluation
TAVO: improving
Subjective:
No CP or dyspnea at rest. Notes dark urine.
Physical Exam
Vital Signs/Labs
Vital Signs
Temp Pulse Resp BP Pulse Ox
97.8 F 83 18 111/70 97
10/10/23 07:00 10/10/23 07:00 10/10/23 07:00 10/10/23 07:00 10/10/23 07:00
10/09/23 10/10/23 10/11/23
06:59 06:59 06:59
Actual Weight 63.304 kg 63.276 kg
10/06/23 16:55
10/10/23 06:42
APTT 29.9 Sec (23.4-35.0) 10/06/23 16:55
Magnesium 2.3 mg/dl (1.6-2.3) 10/08/23 05:04
Triglycerides 91 mg/dl (10-149) 10/07/23 05:10
LDL Cholesterol, Calc 105 mg/dl 10/07/23 05:10
VLDL Cholesterol, Calc 18 mg/dl (0-30) 10/07/23 05:10
HDL Cholesterol 38 mg/dl 10/07/23 05:10
10/06/23
16:55
Hcr-S-Yylwqufvsyo Pept [id number]
LAB Results
10/07/23
10:57
Troponin I 0.032 D
Physical Exam
Constitutional: No acute distress
Cardiovascular: Rhythm & rate is regular and Pedal edema present
Respiratory: Respiratory effort normal and Lungs clear to auscul.
GI: Soft and Distention absent
Data Reviewed
-
Date of Service: October 10, 2023
[2023-10-10] MEDS: LASIX 60 MG PO (08:10)
[2023-10-10 08:56] LABS: Urine Albumin 2+ (Neg - Trace); Urine Bilirubin 1+ (Negative); Urine Character Slightly Cloudy (Clear); Urine Color Brown; Urine Glucose 2+ (Negative); Urine Ketone 1+ (Negative); Urine Leukocyte 2+ (Negative); Urine Nitrite Positive (Negative); Urine Occult Blood 4+ (Negative); Urine Urobilinogen 1+ (Neg - 1+)
[2023-10-10 09:22] LABS: Urine Bacteria Moderate (Negative); Urine Red Blood Cell >100 /HPF (0-2); Urine White Cell 30-40 /HPF (0-5)
--- NOTE | 2023-10-10 09:22 | W.PN.HOSP.TC ---
Today's Communication/Plan
-
Cardiology initiating IV diuresis again
Monitoring blood pressure and renal status
Wound empirically started on antibiotic given urinalysis results and await culture
Assessment / Plan
Assessment / Plan
83M HX MVP , had Porcine Bioprosthetic MVR in 2017 ( [place]) doing will for last 5- 6yrs. He used treadmill dailyat� [employer] till when he had� Viral like URTI but not Covid.
Last couple of months, noted gradually swollen b/l LExs, associated with fatigue, effort intolerance 2/2 Longo. No productive cough. No CP. Apparently had outpatient 2D echocardiogram showing moderately decreased ejection fraction from 2 weeks ago
under his prior name of Sabella
Seen by Card Dr Lucero , initiated PO lasix 20 mg daily and carvedilol 3.125mg BID.
He followed up today with Dr Weiss, sent to ER for worsening CHF fale with POS EJD.
Report gained weight 14- 15 lbs over last 2-3 weeks
Denied prior HX CHF till 2 weeeks ago.
ASSESSMENT & PLAN
fatigue, Longo, peripheral edema
Acute� on subacute CHF - HF mixed HF vs HFpEF vs. Biventricular CHF
Report gained weight 14- 15 lbs over last 2-3 weeks/lost 3 kg overnight with diuresis
Hypotensive
HX MVR in 2016
In NSR - denied Af in the past
- IV Lasix
- Held carvedilol� to give room for lasix and current hypotension for now/continues to have issues with carvedilol due to intolerance albumin this morning
- daily BMP and LFTs
- daily Wt
- ECHO in AM but apparently was done under his prior name 2 weeks ago and showed significant reduction in EF/repeated yesterday and again shows EF of 20
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
- B/L Liliane US to complete w/u was negative for DVT
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
-Apixaban 2.5 twice daily
- CBC card consult
Hypotensive s/p IV Lasix
- Held carvedilol for now
- fall precaution
- will consider Midodrine
- Observing off BB or ARB
-Adding back furosemide October 10/continue to monitor creatinine closely
Renal insufficiency- Cardiorenal syndrome ? Has some improvement after diuresis overnight
- Avoid nephrotoxic
-Creatinine now 1.5 from 1.7 on presentation>> 1.3
- closely monitor RFTs
Abnormal urinalysis
-Reportedly had dark urine overnight
-Positive leukocyte esterase/4+ RBCs
-Would reflex to culture/placed on empiric antibiotic given symptomatology
HX MVR in 2016
In NSR
DVT Px: Eliquis
Code: Full code
IP TLM
Anticipated Discharge: 24 - 48 hours
Subjective/Interval History
-
Date of Service: October 10, 2023
No distress was noted to have a darkened urine on the floor with bloody patient self states that he was it was dark yellow to brown
Objective Data
-
Labs:
Laboratory Results
10/10/23
06:42
Sodium 136
Potassium 4.0
Chloride 102
Carbon Dioxide 27
BUN 47 H
Creatinine 1.3
Glucose 90
Calcium 9.4
Vital Signs:
Vital Signs
Temp Pulse Resp BP Pulse Ox
97.8 F 83 18 111/70 97
10/10/23 07:00 10/10/23 07:00 10/10/23 07:00 10/10/23 07:00 10/10/23 07:00
I&O
02/10/10/23 10/11/23
06:59 06:59 06:59
Intake Total 780 / 780 680 / 680
Output Total 1625 / 1625 350 / 350
Balance -845 / -845 330 / 330
Review of Systems
-
All other systems: Not reviewed unless documented
Respiratory: Reports No Symptoms
Cardiac: Reports Palpitations (I was excited after not seeing my daughter for the last 5 years she came to visit me)
Genitourinary: Reports No Symptoms
Skin: Reports No Symptoms
Physical Exam
-
HEENT: Normocephalic
Respiratory: Crackles
Cardiac: Irregular Rhythm and Other (Periods of nonsustained ventricular tachycardia/frequent PVCs)
Genito-urinary: Bloody Urine
Neuro: Awake
Data Reviewed
-
Total Time Spent with Patient (in minutes): 56
Labs: Labs Reviewed by me (Creatinine improved to 1.3/ urinalysis with positive leukocyte esterase and plus RBCs)
[2023-10-10] MEDS: STERILE WATER FOR INJECTION 10 ML IV (09:58)
[2023-10-10] MEDS: ROCEPHIN 1000 MG IV (09:58)
[2023-10-10 11:05] VITALS: BP 106/62
[2023-10-10 15:00] VITALS: BP 101/74
--- NOTE | 2023-10-10 18:00 | PTCARENOTE ---
Communicated with MD and Cradiology during shift regarding Pt intermittently coming up Vtach and NSR with PVC's on tele. Asymptomatic.
[2023-10-11] VITALS (7 sets, daily range): BP systolic 99–130; BP diastolic 64–81; BMI 21.8
[2023-10-11 05:57] LABS: Blood Urea Nitrogen 43 mg/dl (9-20); Calcium 8.5 mg/dl (8.4-10.2); Carbon Dioxide 25 mmol/L (22-30); Chloride 104 mmol/L (98-107); Estimated Creatinine Clearance 39 ml/min; Glucose 92 mg/dl (70-99); Potassium 3.8 mmol/L (3.5-5.1); Sodium 133 mmol/L (135-145); eGFR 54.85
--- NOTE | 2023-10-11 08:33 | W.PN.CD ---
Today's Communication / Plan
-
monitor on PO lasix and farxiga
increase eliquis to 5mg bid, and trend Cr
Impression / Plan
-
Assessment/Plan: 83M with newly discovered severe CM. He did not do well with outpatient Rx was admitted for treatment. TTE/NEVAEH show LA mass on unclear etiology
Fqmki-hw-tlcbkjl HFrEF with a severe cardiomyopathy (etiology uncertain), LVEF 10%
- improved s/p IV diuresis.
- monitor on lasix 60mg PO daily
- Still has some edema
- Will need to pick a goal weight at discharge
- GDMT so far: Farxiga 10mg daily. He will not take/cannot tolerate HF BB. Later consider MRA, RAAS (ABDIRASHID-I/ARB/ARNI): but suspect BP will limit.
LA mass
- TTE reviewed and NEVAEH confirms mass. Clinically, thrombus makes the most sense but NEVAEH not classic for that
- Chest CT shows left atrial mass conform to the shape of LA, represents LA thrombus rather than neoplasm. MRI would be best to suggest tissue characteristic (no role for tissue Dx at this time)
- continue Eliquis: Cr has improved so increase to 5mg bid
PVC's, NSVT
-EP records reviewed: not an ideal candidate for ICD
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
Abnormal troponin:
- suspect non-ischemic myocardial injury in setting of CHF exacerbation
- eventual ischemic evaluation
TAVO: improving
Subjective:
SOB and edema better.
Physical Exam
Vital Signs/Labs
Vital Signs
Temp Pulse Resp BP Pulse Ox
97.7 F 76 16 99/64 97
10/11/23 07:00 10/11/23 07:00 10/11/23 07:00 10/11/23 07:00 10/11/23 07:00
10/10/23 10/11/23 10/12/23
06:59 06:59 06:59
Actual Weight 63.276 kg
10/06/23 16:55
10/11/23 05:03
APTT 29.9 Sec (23.4-35.0) 10/06/23 16:55
Magnesium 2.3 mg/dl (1.6-2.3) 10/08/23 05:04
Triglycerides 91 mg/dl (10-149) 10/07/23 05:10
LDL Cholesterol, Calc 105 mg/dl 10/07/23 05:10
VLDL Cholesterol, Calc 18 mg/dl (0-30) 10/07/23 05:10
HDL Cholesterol 38 mg/dl 10/07/23 05:10
10/06/23
16:55
Fsz-K-Drijetbtlwd Pept [id number]
Physical Exam
Constitutional: No acute distress and Comfortable
EENT: Moist mucous membranes
Cardiovascular: Rhythm/rate is irregular, Pedal edema present, JVD present and Systolic murmur present
Respiratory: Respiratory effort normal and Lungs clear to auscul.
GI: Soft and Distention absent
Neuro/Psych: AO x 3
Data Reviewed
-
Date of Service: October 11, 2023
EKG: Other (Tele: NSR, PVC's, NSVT)
Labs: Labs Reviewed by me
[2023-10-11] MEDS: FARXIGA 10 MG PO (08:56)
[2023-10-11] MEDS: LASIX 60 MG PO (08:56)
[2023-10-11] MEDS: DESENEX/MITRAZOL/ZEASORB 1 APPLIC TOPICAL ×2 (08:57→19:33)
[2023-10-11] MEDS: STERILE WATER FOR INJECTION 10 ML IV (09:17)
[2023-10-11] MEDS: ELIQUIS 5 MG PO ×2 (09:17→19:32)
[2023-10-11] MEDS: ROCEPHIN 1000 MG IV (09:17)
[2023-10-11] MEDS: ELIQUIS PO (09:47)
--- NOTE | 2023-10-11 12:51 | W.PN.HOSP.TC ---
Today's Communication/Plan
-
diuresis
Labs in am
tubgrips
Assessment / Plan
Assessment / Plan
83M HX MVP , had Porcine Bioprosthetic MVR in 2017 ( [place]) doing will for last 5- 6yrs. He used treadmill dailyat� [employer] till [place] when he had� Viral like URTI but not Covid.
Last couple of months, noted gradually swollen b/l LExs, associated with fatigue, effort intolerance 2/2 Longo. No productive cough. No CP. Apparently had outpatient 2D echocardiogram showing moderately decreased ejection fraction from 2 weeks ago
under his prior name of Ramona
Seen by Card Dr Lucero , initiated PO lasix 20 mg daily and carvedilol 3.125mg BID.
He followed up today with Dr Weiss, sent to ER for worsening CHF fale with POS EJD.
Report gained weight 14- 15 lbs over last 2-3 weeks
Denied prior HX CHF till 2 weeks ago.
CVS: S1-S2 normal
Chest: CTA B/L
Abdomen: Soft, NT / Bowel sounds present
Extremities: B/L Pedal edema
CYLINDER HONER: Non focal exam
#Acute� on chronic CHF with REF
Report gained weight 14- 15 lbs over last 2-3 weeks/lost 3 kg overnight with diuresis
Hypotensive
HX MVR in 2016
Continue Lasix- changed to PO
Cannot tolerate beta-blockers or ABDIRASHID or ARNI or Aldactone secondary to hypotension
Continue Farxiga
Daily weights and BMP
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
Apixaban changed to 5 mg twice a day
#Renal insufficiency- Cardiorenal syndrome ? Has some improvement after diuresis
Creatinine now 1.5 from 1.7 on presentation>> 1.3
#Elevated gikuldaa-umh-JI type secondary to CHF. Eventually may need ischemic evaluation given cardiomyopathy also-type unknown
# Paroxysmal atrial fibrillation-2017 rhythm strips show A-fib
Patient was not on anticoagulation as outpatient for unclear reasons
2017 he was started on Eliquis at that admission and was discharged.
Patient states that after he got the mitral valve replaced at [facility] he was not discharged on Eliquis.
# History of NSVT-not a candidate for ICD per cardiology notes
#HX BIOPROSTHETIC MVR in [place] 2017
# History of right pleural effusion in 2017 status post removal of 1250 mL of fluid
Pathology negative for malignancy
#Abnormal urinalysis
Placed on empiric antibiotic given symptomatology
Await Cx
#DVT Px: Eliquis
#Code: Full code
Discussed with cardiology
Anticipated Discharge: Within 24 hours
Subjective/Interval History
-
Date of Service: October 11, 2023
Objective Data
-
Labs:
Laboratory Results
10/11/23
05:03
Sodium 133 L
Potassium 3.8
Chloride 104
Carbon Dioxide 25
BUN 43 H
Creatinine 1.3
Glucose 92
Calcium 8.5
Vital Signs:
Vital Signs
Temp Pulse Resp BP Pulse Ox
98.0 F 80 18 110/73 98
10/11/23 11:00 10/11/23 11:00 10/11/23 11:00 10/11/23 11:00 10/11/23 11:00
I&O
10/10/23 10/11/23 10/12/23
06:59 06:59 06:59
Intake Total 680 / 680 1320 / 1320
Output Total 350 / 350 350 / 350
Balance 330 / 330 970 / 970
[2023-10-12 03:40] VITALS: BP 106/70
[2023-10-12 06:00] VITALS: BMI 21.7
[2023-10-12 06:16] LABS: Blood Urea Nitrogen 41 mg/dl (9-20); Calcium 8.8 mg/dl (8.4-10.2); Carbon Dioxide 27 mmol/L (22-30); Chloride 101 mmol/L (98-107); Estimated Creatinine Clearance 42 ml/min; Glucose 91 mg/dl (70-99); Potassium 3.9 mmol/L (3.5-5.1); Sodium 133 mmol/L (135-145); eGFR > 60.00
[2023-10-12 07:00] VITALS: BP 102/72
--- NOTE | 2023-10-12 08:34 | W.PN.CD ---
Today's Communication / Plan
-
- no new cardiac recommendations. No objection to discharge
- MEDS: Lasix 60 po QD (new dose), Farxiga 10 po qd (new), Eliquis 5 po BID (new)
- Follow up: Noemi Doshi Oct 5 at 2:20
- We will try to add lisinopril 2.5 po qd at that visit if he is stable and labs OK
- We will enroll in cardiac rehab at that visit if he is amenable
- Labs: BMP in Oct 4
Impression / Plan
-
Assessment/Plan: 83M with newly discovered severe CM. He did not do well with outpatient Rx was admitted for treatment. TTE/NEVAEH show LA mass on unclear etiology
Tadvd-sl-dmakyfz HFrEF with a severe cardiomyopathy (etiology uncertain), LVEF 10% (LVEF 45% in 2017 & 2019)
- improved s/p IV diuresis of 10 lbs.
- monitor on lasix 60mg PO daily -> weight trending down slower.
- Still has some edema
- Will need to pick a goal weight at discharge
- GDMT
- Farxiga 10mg daily.
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
- in 2019, he was able to tolerate enalapril 2.5 po qd -> I will try to add as outpatient
- in 2019, he was intolerant to eplerenone (Headache)
LA mass
- Thrombus
- continue Eliquis: Cr has improved so increase to 5mg bid
PVC's, NSVT
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
Abnormal troponin:
TAVO: improving
Dispo
- no new cardiac recommendations. No objection to discharge
- MEDS: Lasix 60 po QD (new dose), Farxiga 10 po qd (new), Eliquis 5 po BID (new)
- Follow up: Noemi Doshi Oct 5 at 2:20
- We will try to add lisinopril 2.5 po qd at that visit if he is stable and labs OK
- We will enroll in cardiac rehab at that visit if he is amenable
- Labs: BMP in Oct 4
Subjective:
SOB and edema better. He is laying flat without difficulty
Laboratory Data
10/06/23 10/12/23
16:55 05:01
Hgb 14.0
Creatinine 1.2
Selected Entries
10/12/23
06:00 10/06/23
20:44
Actual Weight 138 lb 5 oz 148 lb 12.992
oz
Generic Name Dose Route Start Last Admin
Trade Name Freq PRN Reason Stop Dose Admin
Dapagliflozin 10 mg 10/08/23 12:15
Dapagliflozin (Farxiga) 10 Mg Tablet PO 11/05/23 12:14
DAILY WILFREDO
Furosemide 60 mg 10/10/23 09:00
Furosemide 20 Mg Tablet PO 11/07/23 08:59
DAILY WILFREDO
Apixaban 5 mg 10/11/23 08:45
Apixaban (Eliquis) 5 Mg Tablet PO 11/08/23 08:44
BID WILFREDO
Physical Exam
Vital Signs/Labs
Vital Signs
Temp Pulse Resp BP Pulse Ox
36.4 C 85 18 102/72 99
10/12/23 07:00 10/12/23 07:00 10/12/23 07:00 10/12/23 07:00 10/12/23 07:00
10/11/23 10/12/23 10/13/23
06:59 06:59 06:59
Actual Weight 138 lb 5 oz
10/06/23 16:55
10/12/23 05:01
APTT 29.9 Sec (23.4-35.0) 10/06/23 16:55
Magnesium 2.3 mg/dl (1.6-2.3) 10/08/23 05:04
Triglycerides 91 mg/dl (10-149) 10/07/23 05:10
LDL Cholesterol, Calc 105 mg/dl 10/07/23 05:10
VLDL Cholesterol, Calc 18 mg/dl (0-30) 10/07/23 05:10
HDL Cholesterol 38 mg/dl 10/07/23 05:10
10/06/23
16:55
Ifd-C-Krkeybyvspq Pept [id number]
Physical Exam
Constitutional: No acute distress
EENT: Anicteric
Cardiovascular: Rhythm & rate is regular, Pedal edema is absent, JVD pressure is normal and Systolic murmur absent
Respiratory: Respiratory effort normal, Lungs clear to auscul., Wheeze Absent and Rhonchi Absent
GI: Soft, Distention absent, Non tender and Normal bowel sounds
Neuro/Psych: Alert
Data Reviewed
-
Date of Service: October 12, 2023
[2023-10-12] MEDS: ELIQUIS 5 MG PO ×2 (09:20→20:33)
[2023-10-12] MEDS: LASIX 60 MG PO (09:20)
[2023-10-12] MEDS: FARXIGA 10 MG PO (09:20)
[2023-10-12] MEDS: DESENEX/MITRAZOL/ZEASORB 1 APPLIC TOPICAL ×2 (09:21→20:36)
[2023-10-12] MEDS: ROCEPHIN 1000 MG IV (09:27)
[2023-10-12] MEDS: STERILE WATER FOR INJECTION 10 ML IV (09:27)
--- NOTE | 2023-10-12 10:01 | W.HF.CON ---
Heart Failure
- LV Function
Left ventricular function study result: LV Ejection fraction </= 35%
Ejection Fraction Percentage: 10
- ARNI
Patient already on ARNI: No
Heart Failure ARNI Contraindication: Acute Renal Failure, Hypotension
- ACEI/ARB
Patient already on ACEI/ARB: No
Heart Failure ACEI/ARB Contraindication: Acute Renal Failure, Hypotension
- Beta Titus
Patient already on Evidence Based Beta Titus: No
Heart Failure Evidence Based Beta Titus: Patient Refusal (fatigue and anhedonia)
- Mineralocorticord Receptor Antagonist
Patient already on MRA: No
Heart Failure MRA Contraindication: Acute Renal Insufficiency, Hypotension
- SGLT-2 Inhibitor
Patient already on SGLT-2 Inhibitor: Yes
- NYHA CHF Classification
NYHA CHF Classification Level: Class III - Symptoms w/ min exertion, interferes w/ nml daily activity
- ACC/AHA Stage
ACC/AHA Stage: Stage C: Symptomatic Heart Failure
[2023-10-12 11:00] VITALS: BP 110/55
[2023-10-12 15:00] VITALS: BP 103/60
--- NOTE | 2023-10-12 16:23 | CM ---
Spoke with patient in room.
IMM given signed on chart.
Offered VN he declined,
He said he would drive him slef home .
PLAN Home declined needs
--- NOTE | 2023-10-12 17:15 | W.PN.HOSP.TC ---
Today's Communication/Plan
-
Pt requesting to go home in am
Assessment / Plan
Assessment / Plan
83M HX MVP , had Porcine Bioprosthetic MVR in 2017 ( [place]) doing will for last 5- 6yrs. He used treadmill dailyat� Gym till [place] when he had� Viral like URTI but not Covid.
Last couple of months, noted gradually swollen b/l LExs, associated with fatigue, effort intolerance 2/2 Long[place]. No productive cough. No CP. Apparently had outpatient 2D echocardiogram showing moderately decreased ejection fraction from 2 weeks ago
under his prior name of Ramona
Seen by Card Dr Lucero , initiated PO lasix 20 mg daily and carvedilol 3.125mg BID.
He followed up today with Dr Weiss, sent to ER for worsening CHF fale with POS EJD.
Report gained weight 14- 15 lbs over last 2-3 weeks
Denied prior HX CHF till 2 weeks ago.
CVS: S1-S2 normal
Chest: CTA B/L
Abdomen: Soft, NT / Bowel sounds present
Extremities: B/L Pedal edema
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
#Acute� on chronic CHF with REF
Report gained weight 14- 15 lbs over last 2-3 weeks/lost 3 kg overnight with diuresis
Hypotensive
HX MVR in 2016
Continue Lasix- changed to PO
Cannot tolerate beta-blockers or ABDIRASHID or ARNI or Aldactone secondary to hypotension
Continue Farxiga
Daily weights and BMP
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
Apixaban changed to 5 mg twice a day
#Renal insufficiency- Cardiorenal syndrome ? Has some improvement after diuresis
Creatinine now 1.5 from 1.7 on presentation>> 1.2
#Elevated dsimnbmu-pyc-KM type secondary to CHF. Eventually may need ischemic evaluation given cardiomyopathy also-type unknown
# Paroxysmal atrial fibrillation-2017 rhythm strips show A-fib
Patient was not on anticoagulation as outpatient for unclear reasons
2017 he was started on Eliquis at that admission and was discharged.
Patient states that after he got the mitral valve replaced at [facility] he was not discharged on Eliquis.
# History of NSVT-not a candidate for ICD per cardiology notes
#HX BIOPROSTHETIC MVR in [place] 2017
# History of right pleural effusion in 2017 status post removal of 1250 mL of fluid
Pathology negative for malignancy
#Abnormal urinalysis
Placed on empiric antibiotic given symptomatology
Await Cx
#DVT Px: Eliquis
#Code: Full code
Discussed with cardiology
Anticipated Discharge: Within 24 hours
Subjective/Interval History
-
Date of Service: October 12, 2023
Objective Data
-
Labs:
Laboratory Results
10/12/23
05:01
Sodium 133 L
Potassium 3.9
Chloride 101
Carbon Dioxide 27
BUN 41 H
Creatinine 1.2
Glucose 91
Calcium 8.8
Vital Signs:
Vital Signs
Temp Pulse Resp BP Pulse Ox
97.6 F 74 18 103/60 99
10/12/23 15:00 10/12/23 15:00 10/12/23 15:00 10/12/23 15:00 10/12/23 15:00
I&O
10/11/23 10/12/23 10/13/23
06:59 06:59 06:59
Intake Total 1320 / 1320 1560 / 1560
Output Total 350 / 350 525 / 525
Balance 970 / 970 1035 / 1035
[2023-10-12 19:45] VITALS: BP 106/55
[2023-10-12 23:00] VITALS: BP 102/60
--- NOTE | 2023-10-13 00:13 | PTCARENOTE ---
Patient with a 25 beat run of V. Tach. on tele monitor. Patient asymptomatic. Last Mag from 10/08 2.3, K+ from yesterday 3.9. Patient normally in [place], very poor EF. CORINA Solano notified about V. Tach. Care ongoing.
[2023-10-13 03:50] VITALS: BP 111/71
[2023-10-13 06:00] VITALS: BMI 21.5
[2023-10-13 06:14] LABS: Blood Urea Nitrogen 42 mg/dl (9-20); Calcium 8.8 mg/dl (8.4-10.2); Carbon Dioxide 28 mmol/L (22-30); Chloride 102 mmol/L (98-107); Estimated Creatinine Clearance 46 ml/min; Glucose 89 mg/dl (70-99); Potassium 4.2 mmol/L (3.5-5.1); Sodium 136 mmol/L (135-145); eGFR > 60.00
[2023-10-13 07:00] VITALS: BP 112/75
[2023-10-13] MEDS: FARXIGA 10 MG PO (08:51)
[2023-10-13] MEDS: LASIX 60 MG PO (08:51)
[2023-10-13] MEDS: ELIQUIS 5 MG PO (08:52)
[2023-10-13] MEDS: DESENEX/MITRAZOL/ZEASORB 1 APPLIC TOPICAL (08:54)
[2023-10-13] MEDS: STERILE WATER FOR INJECTION 10 ML IV (09:02)
[2023-10-13] MEDS: ROCEPHIN 1000 MG IV (09:02)
[2023-10-13 11:00] VITALS: BP 111/66
--- NOTE | 2023-10-13 12:57 | W.PN.HOSP.TC ---
Today's Communication/Plan
-
Discharge
Assessment / Plan
Assessment / Plan
83M HX MVP , had Porcine Bioprosthetic MVR in 2017 ( [place]) doing will for last 5- 6yrs. He used treadmill dailyat� Gym till [place] when he had� Viral like URTI but not Covid.
Last couple of months, noted gradually swollen b/l LExs, associated with fatigue, effort intolerance 2/2 Longo. No productive cough. No CP. Apparently had outpatient 2D echocardiogram showing moderately decreased ejection fraction from 2 weeks ago
under his prior name of Ramona
Seen by Card Dr Lucero , initiated PO lasix 20 mg daily and carvedilol 3.125mg BID.
He followed up today with Dr Weiss, sent to ER for worsening CHF fale with POS EJD.
Report gained weight 14- 15 lbs over last 2-3 weeks
Denied prior HX CHF till 2 weeks [employer]OWN [employer]ER.
CVS: S1-S2 normal
Chest: CTA B/L
Abdomen: Soft, NT / Bowel sounds present
Extremities: B/L Pedal edema
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
#Acute� on chronic CHF with REF
Report gained weight 14- 15 lbs over last 2-3 weeks/lost 3 kg overnight with diuresis
Hypotensive
HX MVR in 2016 [place]
Continue Lasix- changed to PO
Cannot tolerate beta-blockers or ABDIRASHID or ARNI or Aldactone secondary to hypotension
Continue Farxiga
Daily weights and BMP
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
Apixaban changed to 5 mg twice a day
#Renal insufficiency- Cardiorenal syndrome ? Has some improvement after diuresis
Creatinine now 1.5 from 1.7 on presentation>> 1.1
#Elevated pywbdkbm-rwx-MR type secondary to CHF. Eventually may need ischemic evaluation given cardiomyopathy also-type unknown
# Paroxysmal atrial fibrillation-2017 rhythm strips show A-fib
Patient was not on anticoagulation as outpatient for unclear reasons
2017 he was started on Eliquis at that admission and was discharged.
Patient states that after he got the mitral valve replaced at [facility] he was not discharged on Eliquis.
# History of NSVT-not a candidate for ICD per cardiology notes
#HX BIOPROSTHETIC MVR in [place] 2017
# History of right pleural effusion in 2017 status post removal of 1250 mL of fluid
Pathology negative for malignancy
#Abnormal urinalysis
Placed on empiric antibiotic given symptomatology
Await Cx
#DVT Px: Eliquis
#Code: Full code
Discussed with cardiology
Discharge time 33 min
Anticipated Discharge: Today
Subjective/Interval History
-
Date of Service: October 13, 2023
Objective Data
-
Labs:
Laboratory Results
10/13/23
05:02
Sodium 136
Potassium 4.2
Chloride 102
Carbon Dioxide 28
BUN 42 H
Creatinine 1.1
Glucose 89
Calcium 8.8
Vital Signs:
Vital Signs
Temp Pulse Resp BP Pulse Ox
97.3 F 62 18 111/66 95
10/13/23 11:00 10/13/23 11:00 10/13/23 11:00 10/13/23 11:00 10/13/23 11:00
I&O
10/12/23 10/13/23 10/14/23
06:59 06:59 06:59
Intake Total 1560 / 1560 690 / 690
Output Total 525 / 525 600 / 600
Balance 1035 / 1035 90 / 90
--- NOTE | 2023-10-13 12:58 | W.DS.TRANS ---
Addendum entered and electronically signed by Xiao Lr MD 10/13/23 17:28:
Dictation- [id number]
Original Note:
DC Summary - Environmental Air Specialist
-
Discharge Instructions:
Sleep Apnea Risk Intermediate
Discharge Diagnosis/Procedures CHF, renal insufficiency, atrial fibrillation,
history of NSVT, bioprosthetic mitral valve
replacement, history of right pleural effusion
Diet 2 Gram Sodium,Restrict fluids to 48 oz
Activity As tolerated
Driving Restrictions As prior to admission
Other Services VN
Specialty Instructions Weigh Daily
Stop these medications: Carvedilol
Instructions: *CBC Heart Failure Instructions
Stand-Alone Forms:
Changes to Home Medications: Yes
Discharge Medications:
DC Medications w/original date entered in [email or web address]
apixaban 5 mg tablet (Eliquis) 5 mg PO BID Blood clot prevention/tx #60 tabs 10/12/23
dapagliflozin propanediol 10 mg tablet (Farxiga) 10 mg PO DAILY Heart disease/condition #30 tabs 10/12/23
furosemide 20 mg tablet 60 mg PO DAILY Heart Failure #90 tabs 10/12/23
Home Medication Changes
coreg stopped
new
apixaban 5 mg tablet (Eliquis) 5 mg PO BID Blood clot prevention/tx #60 tabs 10/12/23
dapagliflozin propanediol 10 mg tablet (Farxiga) 10 mg PO DAILY Heart disease/condition #30 tabs 10/12/23
furosemide 20 mg tablet 60 mg PO DAILY Heart Failure #90 tabs 10/12/23
Pending Results: No
--- NOTE | 2023-10-13 13:15 | CM ---
MD entered order for discharge.
Spoke with patient in room.
Offered VN he declined,
He said he would drive him slef home .
PLAN Home declined needs
--- NOTE | 2023-10-18 16:08 | HFEDUCATE ---
Pt has F/U appt scheduled for 10/19/23 at 2:00PM with CORINA Smith.
== END 2023-10-13 14:46 | disposition home or self-care (01) | DRG 292 ==
LOC: 3 WEST ACU 20:12
PROVIDERS: Emergency Medicine; Internal Medicine; Internal Medicine Cardiovascular Disease; ADMITTING PHYSICIAN Internal Medicine; ATTENDING PHYSICIAN Hospitalist; EMERGENCY PHYSICIAN Emergency Medicine
DX: I50.33 Acute on chronic diastolic (congestive) heart failure (principal); I42.9 Cardiomyopathy, unspecified; I5A Non-ischemic myocardial injury (non-traumatic); N17.9 Acute kidney failure, unspecified; I95.9 Hypotension, unspecified; I48.91 Unspecified atrial fibrillation; Z11.52 Encounter for screening for COVID-19
CPT/HCPCS: 71046; 71260; 80048; 80053; 80061; 81003; 81015; 82248; 83735; 83880; 84443; 84484; 85025; 85730; 87086; 87811; 93005; 93306; 93312; 93320; 93325; 93970; 96374; 99285; Q9967

== ENCOUNTER → 2023-10-30 09:12 | Outpatient (REF) | payer OTHER, SELFPAY | LOC: RAD 09:12 | PROVIDERS: ATTENDING PHYSICIAN Specialist; FAMILY PHYSICIAN Internal Medicine Cardiovascular Disease | DX: R31.9 Hematuria, unspecified (principal) | CPT/HCPCS: 74176 ==

== ENCOUNTER 2023-12-16 20:55 | Inpatient (IN) | payer OTHER, SELFPAY ==
[2023-12-16] VITALS (33 sets, daily range): BP systolic 72–127; BP diastolic 61–103; PULSE 84–101; BMI 22.9
[2023-12-16 14:40] LABS: % Basophils 0.3 % (0-2); % Eosinophils 0.9 % (0-6); % Immature Granulocytes 0.3 % (0-0.5); % Lymphocytes 18.3 % (20.5-51.1); % Monocytes 8.8 % (1.7-9.3); % Neutrophils 71.4 % (42.2-75.2); Absolute Eosinophils 0.1 10^3/uL (0-0.7); Absolute Lymphocytes 1.3 10^3/uL (1.2-3.4); Absolute Monocytes 0.6 10^3/uL (0.1-0.6); Absolute Neutrophils 4.9 10^3/uL (1.4-6.5); Hematocrit 37.4 % (39.0-52.0); Hemoglobin 12.5 g/dL (13.0-18.0); Mean Corp Hgb Conc. 33.4 g/dL (33.0-37.0); Mean Corpuscular Hgb 28.7 pg (27.0-31.0); Mean Platelet Volume 10.4 fL (7.4-10.4); Nucleated Red Blood Cells % 0 % (-); Platelet Count 117 10^3/uL (130-400); Red Blood Cell Count 4.35 10^6/uL (4.70-6.10); Red Cell Dist. Width 17.7 % (11.5-14.5); White Blood Cell Count 6.8 10^3/uL (4.8-10.8)
[2023-12-16 14:46] LABS: ALT (SGPT) 34 U/L (0-50); AST (SGOT) 35 U/L (17-59); Albumin 3.6 g/dl (3.5-5.0); Alkaline Phosphatase 91 U/L (38-126); Blood Urea Nitrogen 36 mg/dl (9-20); Calcium 9.4 mg/dl (8.4-10.2); Carbon Dioxide 23 mmol/L (22-30); Chloride 105 mmol/L (98-107); Glucose 110 mg/dl (70-99); Potassium 4.2 mmol/L (3.5-5.1); Sodium 136 mmol/L (135-145); Total Bilirubin 2.5 mg/dl (0.2-1.3); Total Protein 6.9 g/dl (6.3-8.2); eGFR > 60.00
[2023-12-16 14:58] LABS: NT-proBNP 18500 pg/ml; Troponin I 0.033 ng/ml
--- NOTE | 2023-12-16 19:05 | ED.GENMED ---
History of Present Illness
General
Chief Complaint: Swelling
Source: patient and records
Time Seen by Provider: 12/16/23 18:25
Travel History
Have you had any contact with someone who has COVID-19?: No
Do you have any symptoms of coronavirus? Fever > 100 degrees, chills, cough, shortness of breath, sore throat, loss of taste or smell, muscle aches, or headache?: No
History of Present Illness
History of Present Illness:
83-year-old male with past medical history of diastolic CHF, multiple valvular disease, renal insufficiency, atrial fibrillation presenting to the emergency department for evaluation of gradually worsening exertional dyspnea and lower extremity
edema over the last few weeks. Patient was recently admitted at the end of September for similar and was found to have an acute on chronic CHF exacerbation. Patient was at urgent care today for nosebleed but was advised to come to the ER for
further evaluation. 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 Lucero, and was also seen by a urologist recently for urinary frequency and started on Flomax, finasteride and was also on a 30-day treatment of macro. Patient states ever since
starting these medications his symptoms have gotten worse. He denies any fevers, chills, rigors, cough, chest pain, pleurisy, hemoptysis, abdominal pain, nausea, vomiting or any other concerns.
Past History
Past History
ED Past Medical History: Arrthythmia, CHF and Valvular disease
ED Past Surgical History: Cardiac (Mitral valve [address] [facility]) and Orthopedic
Social History
Tobacco: Non-smoker
Alcohol: None
Drug: None
Personal:
Living: with family
Employment: Retired
Review of Systems
Review of Systems
All Other Systems: ROS reviewed and negative except as documented in HPI and ROS
Phy Exam
Physical Exam
Physical Exam:
GENERAL: Alert , in no apparent distress
EYE: conjunctiva clear
NECK: Supple
ENT: o/p clr, mmm.
CARDIAC: Regular rate and rhythm, systolic murmur at the right second intercostal space and left sternal border
LUNGS: Clear breath sounds bilaterally, no acute respiratory distress, no wheezes/rales/rhonchi
NEUROLOGICAL: Alert and oriented
SKIN: Warm and dry, skin intact.
MUSCULOSKELETAL: Significant 3+ edema to the knees with the edema extending more proximal towards the mid thigh
PSYCH: Normal and appropriate interaction.
Scores
Heart Failure Risk
Heart Failure Risk Score: Not Applicable
Heart Score for Chest Pain Patients
STEMI patient?: Not applicable
Withdrawal Assessment of Alcohol
Withdrawal Assessment Completed?: Not applicable
Course
Orders/Labs/Results
Orders:
Orders
12/16/23 14:16
ECG [Electrocardiogram (*1)] Urgent
Reason for Study: Shortness of Breath
EKG- Treatment ONCE
12/16/23 14:25
Complete Blood Count/With Diff Urgent
Comprehensive Metabolic Panel Urgent
NT-proBNP Urgent
Troponin I Urgent
12/16/23 19:01
CR Chest - 2 Views Urgent
Comment:
Reason For Exam: CHF, SOB
12/16/23 19:15
NORepinephrine 4 MG/250 ML [Levophed] 4 mg in 250 ml IV PER PROTOCOL
Initial dose in mcg/min, then titrate:: 4
Titrate to keep:: SBP > 90 mmHg
Titrate by mcg/min:: 1-2 mcg/min
Frequency of titrations (minutes):: 5
Maximum dose in ICU in mcg/min:: 30
Maximum dose in IMU in mcg/min:: 8
Maximum dose in IVU in mcg/min:: 4
Begin to taper infusion when:: Remained at goal for 4hrs
Taper by mcg/min:: 1-2 mcg/min
Frequency of taper (minutes) if patient maintains goal:: 30
Taper to off?: Yes
If infusion off & no longer maintaining goal:: Contact Provider
12/16/23 20:08
Admit/Transfer Patient As Directed
Co-Sign Provider:
Level of Care: Inpatient admission
Assign to:: IMU- Intermediate Care
Physician / Group: Alfred
Diagnosis: CHF
Reason for Hospitalization: CHF
Expected length of stay greater than two midnights?: Yes
ELOS- Estimated Length of Stay in days: 4
I certify the patient meets the requirements for IP care: Yes
12/16/23 20:21
Code Status As Directed
Resuscitation Status: Full Code
12/16/23 22:12
Troponin I Q6H
Acetaminophen [Tylenol] 650 mg PO Q4HPRN PRN
Furosemide [Lasix] 40 mg IV BID AT 0800,1600
12/16/23 22:12
CARDIOLOGY CONSULT Routine
Consulting Provider: Manuel Lucero
Was physician already notified: Yes
Reason for consult: CHF
TSH Reflex To Free T4 Routine
Activity As Directed
Activity Level: Ambulate
With Assistance
Bladder Scan As Directed
Follow Bladder Retention/Intermittent Cath Algorithm?: Yes
PRN if no void in __ hours: 6
Frequency: Per Retention Algorithm
If Bladder Scan Result >: 400
then:: Straight cath
I/O [Intake/ Output] As Directed
Frequency: Per unit guidelines
Orthostatic Vital Signs As Directed
Orthostatic VS Frequency: BID
Pneumatic Compression Sleeves As Directed
Type: Knee high
Straight Cath As Directed
Frequency: Per Retention Algorithm
Additional Instructions: straight cath as needed per acute urinary retention algorithm for 24 hrs
Additional Instructions: for bladder scan greater than 400 mL
Vital Signs As Directed
Frequency: Per unit guidelines
Weight As Directed
Frequency: Daily
Oxygen Therapy [O2 Therapy] [RESP] Routine
Titrate/Wean O2 to maintain O2 sat greater than (%): 94
Ot Eval And Treat Routine
PT Consult [Pt Eval And Treat] Routine
Activity Level: Ambulate
With Assistance
DX Deep Vein Thrombosis Video Routine
12/17/23 04:12
Troponin I Q6H
12/17/23 Breakfast
Regular
At Your Request: Full Participation
Fluid Restriction: 1440 mL/day (48 oz)
Basic Metabolic Panel IN AM
Complete Blood Count/No Diff IN AM
12/17/23 08:00
Heparin 5,000 units SC Q12
12/17/23 10:12
Troponin I Q6H
Abnormal Lab Results
12/16/23
14:25
RBC 4.35 L 10^6/uL
(4.70-6.10)
Hgb 12.5 L g/dL
(13.0-18.0)
Hct 37.4 L %
(39.0-52.0)
RDW 17.7 H %
(11.5-14.5)
Plt Count 117 L 10^3/uL
(130-400)
Lymphocytes % 18.3 L %
(20.5-51.1)
BUN 36 H mg/dl
(9-20)
Glucose 110 H mg/dl
(70-99)
Total Bilirubin 2.5 H mg/dl
(0.2-1.3)
12/16/23 14:25
12/16/23 14:25
Vital Signs
Initial and Last Documented VS:
Initial Vital Signs
Temp Pulse Resp BP Pulse Ox
97.8 F 58 16 98/78 96
12/16/23 14:09 12/16/23 14:09 12/16/23 14:09 12/16/23 14:12/16/23 14:09
Last Documented Vital Signs
Temp Pulse Resp BP Pulse Ox
97.9 F 89 17 101/88 88
12/16/23 22:19 12/16/23 22:41 12/16/23 22:41 12/16/23 22:41 12/16/23 22:39
MDM/Problems Addressed
Differential Diagnosis Includes:
Acute on chronic CHF exacerbation, worsening valvular dysfunction, renal insufficiency
MDM/Problems Addressed:
83-year-old male presenting emergency department for evaluation of worsening lower extremity edema and exertional dyspnea. He was noted on arrival patient's weight is 71.9 kg and upon his discharge back in September he weighed just above 62 kg.
Concern for significant volume overload. Labs were initiated on arrival which revealed a BNP of greater than 18,000. Remaining labs are patient's baseline. I added on a chest x-ray to patient's workup. He was found to be hypotensive during my
examination. Patient will require diuresis but due to his hypotension this makes this difficult so decision was ultimately made to start patient on peripheral Levophed to help with his hypotension. Will defer diuretics to hospitalist and
cardiology team. Patient to be admitted for further evaluation.
Chronic conditions affecting care: Cardiomyopathy and Arrhythmia
Acute Exacerbation and/or Progression of Chronic Illness: Cardiomyopathy and Arrhythmia
*Radiology
Radiology exam reviewed: preliminary read by ED provider (right pleural effusion, vascular congestion)
*Pulse Oximetry
Patient hypoxic: no
*EKG
Interpreted by ED Provider?: Yes
Comparison EKG: no changes
Heart Rate: 99
Rate: normal
Rhythm: sinus and PVC's
[place]: left axis deviation
*Restuarant Crew Worker Interpretation
Rate: normal
Rhythm: sinus
*Critical Care Note
Total Time (30-74mins, 75-104mins- exclusive of procedures): Not Applicable
Data Reviewed
Review of Other/Old Records Reveals: Labs, Records and Discharge Summary
Source: patient and records
Patient Management
Discussion with other providers: Hospitalist
Escalation/DeEscalation of care consider admission/obs:
Hospitalist team is aware and accepts for continued evaluation and treatment.
ED Attending Note
-
Portions of this chart may have been created with voice recognition software.� Occasional wrong word or��sound alike� substitutions may have occurred due to the inherent limitations of voice recognition software.
Discharge Plan
Departure
Patient Disposition: Admit
Date of Disposition: 12/16/23
Time of Disposition: 19:35
Presentation/result/management discussed w/ accepting MD/DO: Hospitalist
Discharge Problem:
Acute exacerbation of CHF (congestive heart failure)
Interventions
Interventions:
*Risk Screen - Suicide Last Done: 12/16/23 22:36
*General Assessment Last Done: 12/16/23 18:54
*Neglect/Abuse Screening Last Done: 12/16/23 18:54
*ED COVID-19 Vaccine History Last Done: 12/16/23 18:54
*Nursing Disposition Last Done: 12/16/23 22:22
ED- Cardiac Assessment Last Done: 12/16/23 18:55
ED- Pulmonary Assessment Last Done: 12/16/23 18:55
ED-Skin Assessment Last Done: 12/16/23 18:55
Discharge Date and Time
Discharge Date/Time: 12/16/23 22:22
[2023-12-16] MEDS: LEVOPHED 250 IV (19:51)
--- NOTE | 2023-12-16 20:25 | HPS.HSE ---
Family Physician
-
Family Physician: Manuel Lucero
Chief Complaint
-
Edema, Fatigue
History of Present Illness
Patient is an 83y M with PMH significant for CHFrEF, paroxysmal atrial fibrillation and BioMVR who presents to ED complaining of progressive fatigue and edema. Patient was last hospitalized here in September of this year. He was diagnosed with
CHF at that time and Echo showed LVEF = 15-20%, moderate TR / pulmonary hypertension and left atrial density suspicious for thrombus. Patient was diuresed successfully and started on low dose Eliquis. He notes that he 'felt great' at the time of
discharge. After D/C, patient complained of frequent urination. He also noted hematuria. He had no dysuria. Eliquis was stopped and the hematuria resolved. Patient was seen by Urology and notes that he had a cystoscopy that was reportedly
normal.
He was started on tamsulosin, finasteride and Macrobid - which was prescribed for 30 days.
Patient states that since beginning these medications he has felt gradually more weak and has noted marked increase in his edema.
He denies any chest pain, lightheadedness or shortness of breath.
He complains of general fatigue and notes edema that has progressed to include his scrotum / genitalia.
His weight has increased from 125 lbs to 150 lbs over the past 2 weeks.
Patient states that his furosemide dosing has been adjusted multiple times over the past two weeks - but without any apparent improvement in his symptoms.
He last took 40mg Lasix this AM.
Medical History
Past Medical History
Past Medical History: Reports Other
Additional Past Medical History:
Mitral Valve Disease
Chronic HFrEF
Paroxysmal Atrial Fibrillation
Past Surgical History: Reports Other
Additional Past Surgical History:
BioMVR (2017)
Social History
Tobacco: Non-smoker
Alcohol: Occasional
Drug: None
Family History
Family History: Not pertinent
Allergies / Home Medications
Allergies reflects when Allergies were last updated in [email or web address].
Home Medications with original date entered in [email or web address]
Allergy/Medication List:
Allergies
Allergy/AdvReac Type Severity Reaction Status Date / Time
No Known Allergies Allergy Verified 12/16/23 14:16
Home Medications
dapagliflozin propanediol 10 mg tablet (Farxiga) 10 mg PO DAILY Heart disease/condition #30 tabs 10/12/23
finasteride 5 mg tablet 5 mg PO DAILY 12/16/23
furosemide 20 mg tablet 40 mg PO DAILY Heart Failure 12/16/23
tamsulosin 0.4 mg capsule (Flomax) 0.4 mg PO DAILY 12/16/23
Review of Systems
-
History Source: Patient
A 12 point ROS was completed and negative except as noted: Yes
Constitutional: Reports Weight Gain and Fatigue; Denies Fever or Chills
EENT: Denies Sore Throat
Respiratory: Denies Cough or Trouble Breathing
Cardiac: Denies Chest Pain, Diaphoresis, Palpitations or Syncope
Abdomen/GI: Denies Abdominal Pain, Nausea, Vomiting or Diarrhea
: Reports Frequency; Denies Dysuria, Flank Pain, Incontinence or Bleeding
Musculoskeletal: Reports Edema; Denies Joint Pain
Neurological: Denies Dizzy or Headache
Psych: Denies Depression or Anxiety
Physical Exam
Vital Signs
Vital Signs
Temp Pulse Resp BP Pulse Ox
97.8 F 86 16 102/75 94
12/16/23 14:09 12/16/23 20:00 12/16/23 14:09 12/16/23 20:00 12/16/23 19:53
Physical Exam
General: Other (Faril, cachectic appearing 83y M in no acute distress.)
HEENT: Moist mucous membranes and Other (Marked JVD)
Respiratory: Clear; No Wheezes, Rales or Rhonchi
Cardiac: S1/S2, Regular Rhythm and Murmur (II/ FLCAO at apex)
GI: Other (Softly distended. Pos BS. Not tender.)
Musculoskeletal: No Clubbing, No Cyanosis and Other (Marked pitting edema b/l LEs extending proximally to the scrotum / genitalia.)
Neuro: AO x 3
Psych: No Anxious or Depressed
Laboratory Results
-
12/16/23 14:25
12/16/23 14:25
Laboratory Results
Total Bilirubin 2.5 mg/dl (0.2-1.3) H 12/16/23 14:25
AST 35 U/L (17-59) 12/16/23 14:25
ALT 34 U/L (0-50) 12/16/23 14:
Alkaline Phosphatase 91 U/L (38-126) 12/16/23 14:
Troponin I 0.033 ng/ml 12/16/23 14:25
Impression/Plan
-
A/P: Patient is an 83y M with PMH significant for CHFrEF who presents to ED complaining of 2 weeks of weight gain, fatigue and increased edema.
Acute on Chronic HFrEF
Mitral Valve Disease s/p BioMVR
- Admit for further evaluation and treatment.
- BP marginal in the ED and patient was started on Levophed for BP support.
- Suspect he will be able to quickly come of off this medication.
- Change Lasix to IV for now and follow I/Os, daily weights, etc.
- Cardiology evaluation.
- Defer repeat Echo for now - last done 09/2023.
- Monitor for clinical improvement.
- GDMT were unable to be initiated during last visit due to hypotension.
Atrial Mass / Lesion
- Suspected thrombus on last admission - though ? valve shadow.
- Was started on Eliquis, but this was discontinued due to hematuria which has since resolved.
- Will remain off of anticoagulation for now pending further input from Cardiology.
Urinary Frequency
- No symptoms of dysuria, etc.
- Hold further Macrobid, Flomax and Proscar for now.
- Monitor for any new / worsening symptoms.
DVT Prophylaxis: Subcut Heparin
Code Status: Full
[2023-12-16] MEDS: LASIX 40 MG IV (22:49)
--- NOTE | 2023-12-16 23:09 | PTCARENOTE ---
Pt received from ED. Pt AAO. Pt pulled over from stretcher to bed. Pt recived on 4 mcg of levo. pt BP 111/70 (79). pt able to answer admission questions. pt oriented to room.
--- NOTE | 2023-12-16 23:35 | PTCARENOTE ---
Pt with frequent runs of PVCs and a visible BBB on monitor. HR jumping from 80's to 110's. Pt asymptomatic and denies SOB or chest pain. EKG done, confirming presence of PVCS, stating Pt in NSR with multiple PVCs and right BBB. CLINICAL PRACTICE CONSULTANT notified, order
for mag and phosphorus with AM labs received.
[2023-12-17] VITALS (48 sets, daily range): BP systolic 80–162; BP diastolic 47–146; PULSE 86–95; O2SAT 93; BMI 22.9; BMI 22.6
[2023-12-17 00:33] LABS: Troponin I 0.037 ng/ml
[2023-12-17 00:50] LABS: TSH Reflex To Free T4 2.24 uIU/ml (0.47-4.68)
--- NOTE | 2023-12-17 01:50 | PTCARENOTE ---
Q6 troponin drawn, resulting at 0.37, increased from the previous 0.33 that was drawn in the ED. WINE CONSULTANT notified. Pt in for another q6 troponin this Am At 0400. Pt denies chest pain.
[2023-12-17 04:44] LABS: Hematocrit 34.4 % (39.0-52.0); Hemoglobin 12.1 g/dL (13.0-18.0); Mean Corp Hgb Conc. 35.2 g/dL (33.0-37.0); Mean Corpuscular Hgb 29.1 pg (27.0-31.0); Mean Corpuscular Volume 82.7 fL (80.0-94.0); Mean Platelet Volume 9.8 fL (7.4-10.4); Platelet Count 113 10^3/uL (130-400); Red Blood Cell Count 4.16 10^6/uL (4.70-6.10); Red Cell Dist. Width 17.1 % (11.5-14.5); White Blood Cell Count 5.8 10^3/uL (4.8-10.8)
[2023-12-17 05:08] LABS: Blood Urea Nitrogen 36 mg/dl (9-20); Calcium 9.1 mg/dl (8.4-10.2); Carbon Dioxide 21 mmol/L (22-30); Chloride 107 mmol/L (98-107); Estimated Creatinine Clearance 50 ml/min; Glucose 87 mg/dl (70-99); Magnesium 2.4 mg/dl (1.6-2.3); Phosphorus 4.1 mg/dl (2.5-4.5); Potassium 4.3 mmol/L (3.5-5.1); Sodium 135 mmol/L (135-145); eGFR > 60.00
[2023-12-17 05:32] LABS: Troponin I 0.037 ng/ml
--- NOTE | 2023-12-17 07:49 | W.PN.CD ---
Today's Communication / Plan
-
Impression / Plan
-
Impression: 83M with CM EF 10% admitted with HFrEF
PMH: AF, MR s/p MVRe, CM, LA thrombus, NSVT
Plan
HFrEF
- Lasix IV BID with norepinephrine to cover. Goal weight 130 lbs or so
- daily weights, I/O, creatinine
CM EF 10%
- Mr. Moreau was treated in [facility] for the last five years (sporadically). He returned to us in August with HF, AF, LA thrombus, and NSVT
- GDMT Hx (currently on norepinephrine)
������ �- He cannot tolerate HF BB (reviewed [facility] supervisor paste mixing notes, and he had the same problem).
������ �- in 2018, he was able to tolerate enalapril 2.5 po qd
������ �- in 2019, he was intolerant to eplerenone (Headache).
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
- he stopped warfarin on his own while in [facility] (perhaps around 2018)
- he stopped apixaban two weeks ago
- I explained the very high risk nature of being off AC - he seemed to understand but is deferring for now.
AF - currently NSR
Severe MR - MVRe looks good
NSVT - noted
Urinary retention - Mr. Moreau feels he went downhill with BPH meds, but it seems more coincidental
Dispo
- His intermediate and credit verifier prognosis is poor given his severe heart disease, comorbidities, intolerances, and social determinants of health (getting , living in a hotel, etc.)
- Full code
Subjective: Dictated
Data:
�������TTE Sep 15: EF 10-15%, severe ONEL, bio MVR OK, mod TR with PASP 51 mmHg
�������TTE/NEVAEH Oct 08: EF 10-15%, 4 chamber dilation, LA thrombus, bio MVR OK, moderate TR
CT Oct 08: LA thrombus attached to LA clip
�����
Physical Exam
Vital Signs/Labs
Vital Signs
Temp Pulse Resp BP Pulse Ox
36.3 C 82 16 112/97 90
12/17/23 03:45 12/17/23 06:00 12/17/23 06:00 12/17/23 06:00 12/17/23 05:30
12/16/23 12/17/23 12/18/23
06:59 06:59 06:59
Actual Weight 148 lb 9.465 oz
12/17/23 04:38
12/17/23 04:38
Magnesium 2.4 mg/dl (1.6-2.3) H 12/17/23 04:38
12/16/23
14:25
Dkk-P-Obzimgbeegl Pept [id number]
LAB Results
12/16/23 12/16/23 12/17/23
14:25 23:59 04:38
Troponin I 0.033 0.037 H* 0.037 H*
Data Reviewed
-
Date of Service: December 17, 2023
[2023-12-17] MEDS: LASIX 40 MG IV ×2 (08:15→16:33)
[2023-12-17] MEDS: HEPARIN 5000 UNITS SC ×2 (08:15→20:05)
--- NOTE | 2023-12-17 09:05 | PTCARENOTE ---
Patient received from magnetic healer. Patient resting comfortably in bed. AAO, VSS on Levo of 1mcg/min. Will attempt to wean off Levo this AM. No events noted overnight. No complaints of pain. No scheduled testing. Call zavala in reach.
--- NOTE | 2023-12-17 09:16 | W.PN.HOSP.TC ---
Today's Communication/Plan
-
see bold
Assessment / Plan
Assessment / Plan
83y M with PMH significant for CHFrEF who presents to ED complaining of 2 weeks of weight gain, fatigue and increased edema.
Gen: NAD, AAOx3.
Eyes: EOMI, PERRLA, no scleral icterus.
Neck: supple.
CV: irreg/irreg, +S1/S2, no m/r/g.
Resp: CTAB, no rales, wheezes, or rhonchi.
Abd: +BS, soft, NT, ND
Skin: No rashes. 3+ B/L LE edema
Neuro: CN 2-12 intact, non-focal.
Psych: Normal mood and affect.
CXR: Progressive moderate right pleural effusion. Suspect trace left pleural effusion. Stable cardiomegaly. Stable mild vascular congestion.
Acute on Chronic HFrEF
Mitral Valve Disease s/p BioMVR
- BP marginal in the ED and patient was started on Levophed for BP support.
- Levophed just stopped around 0915 on 12/16/23, SBP currently 100s
- Cont Lasix IV for now and follow I/Os, daily weights, etc.
- Cardiology evaluation.
- Defer repeat Echo for now - last done 09/2023.
- orthostatic VS NEG
- Monitor for clinical improvement.
- GDMT were unable to be initiated during last visit due to hypotension.
Atrial Mass / Lesion
- Suspected thrombus on last admission - though ? valve shadow.
- Was started on Eliquis, but this was discontinued due to hematuria which has since resolved.
- Will remain off of anticoagulation for now pending further input from Cardiology.
Urinary Frequency
- No symptoms of dysuria, etc.
- Hold further Macrobid, Flomax and Proscar for now.
- Monitor for any new / worsening symptoms.
FULL/Heparin
Anticipated Discharge: 24 - 48 hours
Subjective/Interval History
-
Date of Service: December 17, 2023
Denies CP/SOB.
Objective Data
-
Labs:
Laboratory Results
12/17/23
04:38
WBC 5.8
Hgb 12.1 L
Hct 34.4 L
Plt Count 113 L
Sodium 135
Potassium 4.3
Chloride 107
Carbon Dioxide 21 L
BUN 36 H
Creatinine 1.1
Glucose 87
Calcium 9.1
Vital Signs:
Vital Signs
Temp Pulse Resp BP Pulse Ox
97.5 F 88 16 105/56 90
12/17/23 07:40 12/17/23 08:15 12/17/23 06:00 12/17/23 08:15 12/17/23 05:30
I&O
12/16/23 12/17/23 12/18/23
06:59 06:59 06:59
Intake Total 240 / 240
Output Total 970 / 970
Balance -730 / -730
[2023-12-17 11:07] LABS: Troponin I 0.051 ng/ml
--- NOTE | 2023-12-17 12:57 | CM ---
Patient with Hx Cardiomyopathy with Dx CHF, Left atrial thrombus. O2 2L. Levophed gtt, IV Lasix. PT & OT Evals; no needs.
Met with patient who recently sold his house and is staying at the [facility] which has elevator access.
The patient has been independent in ADLs and ambulation.
He has no DME, prior VN or SNF.
PCP - Manuel Lucero
Pharmacy - [facility]
The patient states he is in the process of moving from [place] to [facility]. His and son left a few days ago to drive down to [place]. Patient sold his car and plans on having friend take him back to the motel and then to the train to go to [place].
Per cardiology notes 12/16: 'his social determinants of health are difficult. He is going through a divorce with his of many years. He has been in and out of his house. 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
Asked patient if there were any issues with moving to [place] with his - patient relays some stress around the sale of his home, and says he and his are reconciled and they are not getting . He denies any issues with law enforcement.
Plan watch for home O2 needs.
Plan discharge to counts include 234 beds at the [facility].
[2023-12-17 17:39] LABS: Troponin I 0.043 ng/ml
[2023-12-18] VITALS (20 sets, daily range): BP systolic 89–117; BP diastolic 54–83; BMI 21.9
--- NOTE | 2023-12-18 06:15 | PTCARENOTE ---
Received pt at change of shift. AAOx3. Offers no complaints at this time. Able to use urinal without assistance. Nursing assessment as documented. VSS at this time. SBP remains >90. Resting in bed with call zavala in reach.
[2023-12-18] MEDS: HEPARIN 5000 UNITS SC ×2 (08:44→19:55)
[2023-12-18] MEDS: LASIX 40 MG IV ×2 (08:44→17:00)
--- NOTE | 2023-12-18 10:51 | W.PN.CD ---
Addendum entered and electronically signed by Chato Padilla MD 12/18/23 13:56:
Patient seen and examined in collaboration with COORDINATOR SKILL TRAINING [employer]; agree with below.
-Continue Lasix 40 mg IV BID for effective diuresis.
-Patient refuses systemic anticoagulation.
-playground monitor.
Original Note:
Today's Communication / Plan
-
-continue IV diuresis
Impression / Plan
-
Impression: 83M with CM EF 10% admitted with HFrEF
PMH: AF, MR s/p MVRe, CM, LA thrombus, NSVT
Plan
HFrEF:
-feeling that he is breathing better. Weight is down.
-Continue Lasix IV BID. Goal weight 130 lbs or so. No longer requiring Levophed for BP support.
-daily weights, I/O, creatinine
CM EF 10%
- Mr. Moreau was treated in [facility] for the last five years (sporadically). He returned to us in August with HF, AF, LA thrombus, and NSVT
- GDMT Hx:
������ �- He cannot tolerate HF BB (reviewed [facility] boring and filling machine operator notes, and he had the same problem).
������ �- in 2019, he was able to tolerate enalapril 2.5 po qd
������ �- in 2019, he was intolerant to eplerenone (Headache).
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
- he stopped warfarin on his own while in [facility] (perhaps around 2019)
- he stopped apixaban two weeks ago
- Dr. Lucero explained the very high risk nature of being off AC - he seemed to understand but is deferring for now. He continues to defer for me today.
AF - currently NSR
Severe MR - MVRe looks good
NSVT - noted
Urinary retention - Mr. Moreau feels he went downhill with BPH meds, but it seems more coincidental
Dispo
- His intermediate and senior care prognosis is poor given his severe heart disease, comorbidities, intolerances, and social determinants of health (getting , living in a hotel, etc.)
- Full code
Subjective:
Feeling better the 'more he urinates'
Data:
�������TTE Sep 15: EF 10-15%, severe ONEL, bio MVR OK, mod TR with PASP 51 mmHg
�������TTE/NEVAEH Oct 08: EF 10-15%, 4 chamber dilation, LA thrombus, bio MVR OK, moderate TR
CT Oct 08: LA thrombus attached to LA clip
�����
Physical Exam
Vital Signs/Labs
Vital Signs
Temp Pulse Resp BP Pulse Ox
97.6 F 85 15 117/80 93
12/18/23 07:15 12/18/23 06:00 12/18/23 06:00 12/18/23 06:00 12/18/23 06:00
12/17/23 12/18/23 12/19/23
06:59 06:59 06:59
Actual Weight 67.4 kg 65.4 kg
12/17/23 04:38
12/17/23 04:38
Magnesium 2.4 mg/dl (1.6-2.3) H 12/17/23 04:38
12/16/23
14:25
Frf-U-Elblklfzfav Pept [id number]
LAB Results
12/16/23 12/16/23 12/17/23
14:25 23:59 04:38
Troponin I 0.033 0.037 H* 0.037 H*
12/17/23 12/17/23
10:31 16:57
Troponin I 0.051 H* D 0.043 H*
Physical Exam
Constitutional: No acute distress
EENT: Anicteric
Cardiovascular: Rhythm & rate is regular
Respiratory: Respiratory effort normal and Lungs clear to auscul.
Neuro/Psych: AO x 3
Other: Skin (warm and dry)
Data Reviewed
-
Date of Service: December 18, 2023
EKG: Other (currently SR)
--- NOTE | 2023-12-18 15:14 | W.PN.HOSP.TC ---
Today's Communication/Plan
-
Diuresis
Assessment / Plan
Assessment / Plan
83y M with PMH significant for CHFrEF who presents to ED complaining of 2 weeks of weight gain, fatigue and increased edema.
He stated that he was feeling well after the hospitalization here in September. He had frequency of urination and saw Dr. Mcgrath. He was placed on Macrobid after cystoscopy along with finasteride and Flomax. Patient stated that ever since then he
has gained weight and he stopped taking all the medicines last week. He gained 15 pounds at home
CXR: Progressive moderate right pleural effusion. Suspect trace left pleural effusion. Stable cardiomegaly. Stable mild vascular congestion.
#Acute on Chronic HFrEF
Mitral Valve Disease s/p BioMVR
- BP marginal in the ED and patient was started on Levophed for BP support.
- Levophed just stopped around 0915 on 12/16/23
- Cont Lasix IV for now and follow I/Os, daily weights
- Cardiology following
- orthostatic VS NEG
- Monitor for clinical improvement.
- GDMT were unable to be initiated during last visit due to hypotension.
-Continue Farxiga
-No labs-today. Repeat BMP tomorrow while diuresing
# Non-[place] troponin elevation
# Atrial Mass / Lesion
- Suspected thrombus on last admission -potential left atrial clip
-Patient had stopped Coumadin in [place] in 2019
- Was started on Eliquis , but this was discontinued 2 weeks ago due to hematuria which has since resolved.
- He is at high risk but prefers to be off of anticoagulation now.
# Severe mitral regurgitation-HX bioprosthetic MVR in 2017 [place]
# Paroxysmal atrial fibrillation-in sinus rhythm now
Currently diagnosed in 2017
Patient was not on anticoagulation as outpatient for unclear reasons
2017 he was started on Eliquis at that admission and was discharged.
Patient states that after he got the mitral valve replaced at [facility] he was not discharged on Eliquis.
# NSVT-not a candidate for ICD per cardiology notes
# Urinary Frequency
- No symptoms of dysuria, frequency
- Completed 1 month of Macrobid, patient does not want to go back on Flomax and Proscar for now.
- Monitor for any new / worsening symptoms.
-I discussed that above medicines do not cause fluid retention however he does not want to take it now.
# History of right pleural effusion in 2017 status post removal of 1250 mL of fluid
Pathology negative for malignancy
# FULL code
# DVT prophylaxis- WILFREDO
Anticipated Discharge: > 48 hours
Subjective/Interval History
-
Date of Service: December 18, 2023
Objective Data
-
Vital Signs:
Vital Signs
Temp Pulse Resp BP Pulse Ox
97.7 F 106 23 101/83 94
12/18/23 11:10 12/18/23 13:00 12/18/23 13:00 12/18/23 13:00 12/18/23 13:22
I&O
12/17/23 12/18/23 12/19/23
06:59 06:59 06:59
Intake Total 240 / 240 720 / 720 480 / 480
Output Total 970 / 970 1625 / 1625 600 / 600
Balance -730 / -730 -905 / -905 -120 / -120
[2023-12-19] VITALS (17 sets, daily range): BP systolic 92–142; BP diastolic 65–131; BMI 21.5; BMI 22.0
[2023-12-19 05:03] LABS: Hematocrit 39.5 % (39.0-52.0); Hemoglobin 13.3 g/dL (13.0-18.0); Mean Corp Hgb Conc. 33.7 g/dL (33.0-37.0); Mean Corpuscular Volume 86.2 fL (80.0-94.0); Mean Platelet Volume 10.6 fL (7.4-10.4); Platelet Count 135 10^3/uL (130-400); Red Blood Cell Count 4.58 10^6/uL (4.70-6.10); White Blood Cell Count 6.8 10^3/uL (4.8-10.8)
[2023-12-19 05:26] LABS: Blood Urea Nitrogen 34 mg/dl (9-20); Calcium 9.1 mg/dl (8.4-10.2); Carbon Dioxide 27 mmol/L (22-30); Chloride 104 mmol/L (98-107); Estimated Creatinine Clearance 52 ml/min; Glucose 87 mg/dl (70-99); Potassium 3.6 mmol/L (3.5-5.1); Sodium 136 mmol/L (135-145); eGFR > 60.00
[2023-12-19] MEDS: LASIX 40 MG IV ×2 (07:44→17:10)
[2023-12-19] MEDS: HEPARIN 5000 UNITS SC ×2 (07:44→19:41)
--- NOTE | 2023-12-19 10:18 | W.PN.CD ---
Addendum entered and electronically signed by Chato Padilla MD 12/19/23 10:31:
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
Original Note:
Today's Communication / Plan
-
- Continue Lasix 40 mg IV BID; goal weight 130 lbs or so (currently 141 pounds).
- He stopped apixaban two weeks ago due to hematuria.
Impression / Plan
-
Impression: 83M with CM EF 10% admitted with HFrEF
PMH: AF, MR s/p MVRe, CM, LA thrombus, NSVT
Plan
Acute on chronic HFrEF (EF 10%):
-Volume status is improving.
-Continue Lasix 40 mg IV BID; goal weight 130 lbs or so (currently 141 pounds).
-Continue to monitor daily weights, I/O, creatinine.
-He was treated in [facility] for the last five years (sporadically). He returned to us in August with HF, AF, LA thrombus, and NSVT
- GDMT Hx:
������ �- He cannot tolerate HF BB (reviewed [facility] Forder Operator notes, and he had the same problem).
- Likely declined ICD.
������ �- in 2019, he was able to tolerate enalapril 2.5 po qd
������ �- in 2019, he was intolerant to eplerenone (Headache)
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
- he stopped warfarin on his own while in [facility] (perhaps around 2018)
- He stopped apixaban two weeks ago due to hematuria.
Bioprosthetic mitral valve replacement
-Relatively stable.
AF - currently NSR
Severe MR - MVRe looks good
NSVT - noted previously on telemetry; stable overnight.
Urinary retention - Mr. Moreau feels he went downhill with BPH meds, but it seems more coincidental
Subjective:
No major events overnight.
Data:
�������TTE Sep 15: EF 10-15%, severe ONEL, bio MVR OK, mod TR with PASP 51 mmHg
�������TTE/NEVAEH Oct 08: EF 10-15%, 4 chamber dilation, LA thrombus, bio MVR OK, moderate TR
CT Oct 08: LA thrombus attached to LA clip
�����
Physical Exam
Vital Signs/Labs
Vital Signs
Temp Pulse Resp BP Pulse Ox
97.9 F 93 20 113/79 95
12/19/23 07:30 12/19/23 05:00 12/19/23 05:00 12/19/23 05:00 12/19/23 04:01
12/18/23 12/19/23 12/20/23
06:59 06:59 06:59
Actual Weight 65.4 kg 64.2 kg
12/19/23 04:45
12/19/23 04:45
Magnesium 2.4 mg/dl (1.6-2.3) H 12/17/23 04:38
12/16/23
14:25
Wxf-W-Vkppauyfaxv Pept [id number]
LAB Results
12/16/23 12/16/23 12/17/23
14:25 23:59 04:38
Troponin I 0.033 0.037 H* 0.037 H*
12/17/23 12/17/23
10:31 16:57
Troponin I 0.051 H* D 0.043 H*
Physical Exam
Constitutional: No acute distress and Comfortable
EENT: Anicteric
Cardiovascular: Rhythm & rate is regular, Pedal edema present (1+), Systolic murmur present (2/6) and S1S2 is normal
Respiratory: Respiratory effort normal and Lungs clear to auscul.
GI: Soft
Neuro/Psych: AO x 3
Other: Skin (Warm, dry, intact)
Data Reviewed
-
Date of Service: December 19, 2023
EKG: Tracing Personally Visualized and interpreted (Sinus rhythm with PVCs)
Echo: Tracing Personally Visualized and interpreted (EF 15-20%)
Medical Tests (PFT, Pathology etc): Discussed with Patient
Labs: Labs Reviewed by me
--- NOTE | 2023-12-19 11:22 | W.PN.HOSP.TC ---
Today's Communication/Plan
-
Ultrasound of the chest in the morning
Continue diuresis
Add potassium
Assessment / Plan
Assessment / Plan
83y M with PMH significant for CHFrEF who presents to ED complaining of 2 weeks of weight gain, fatigue and increased edema.
He stated that he was feeling well after the hospitalization here in September. He had frequency of urination and saw Dr. Mcgrath. He was placed on Macrobid after cystoscopy along with finasteride and Flomax. Patient stated that ever since then he
has gained weight and he stopped taking all the medicines last week. He gained 15 pounds at home
CVS: S1-S2 normal
Chest: rales left base, Decreased breath sounds right base
Abdomen: Soft, NT / Bowel sounds present
Extremities: No edema, normal pulses
INSTALLER: Non focal exam
CXR: Progressive moderate right pleural effusion. Suspect trace left pleural effusion. Stable cardiomegaly. Stable mild vascular congestion.
#Acute on Chronic HFrEF
Mitral Valve Disease s/p BioMVR
- BP marginal in the ED and patient was started on Levophed for BP support.
- Levophed just stopped around 0915 on 12/16/23
- Cont Lasix IV for now and follow I/Os, daily weights
- Cardiology following
- orthostatic VS NEG
- Monitor for clinical improvement.
- GDMT were unable to be initiated during last visit due to hypotension.
-Continue Farxiga
-Follow labs
# Right pleural effusion
Will get ultrasound of the chest tomorrow if still moderate will require thoracentesis
# Non-NM troponin elevation
# Atrial Mass / Lesion
- Suspected thrombus on last admission -potential left atrial clip
-Patient had stopped Coumadin in [place] in 2019
- Was started on Eliquis , but this was discontinued 2 weeks ago due to hematuria which has since resolved.
- He is at high risk but prefers to be off of anticoagulation now.
# Severe mitral regurgitation-HX bioprosthetic MVR in 2017 [place]
# Paroxysmal atrial fibrillation-in sinus rhythm now
Currently diagnosed in 2017
Patient was not on anticoagulation as outpatient for unclear reasons
2017 he was started on Eliquis at that admission and was discharged.
Patient states that after he got the mitral valve replaced at [facility] he was not discharged on Eliquis.
# NSVT-not a candidate for ICD per cardiology notes
# Urinary Frequency
- No symptoms of dysuria, frequency
- Completed 1 month of Macrobid, patient does not want to go back on Flomax and Proscar for now.
- Monitor for any new / worsening symptoms.
-I discussed that above medicines do not cause fluid retention however he does not want to take it now.
# History of right pleural effusion in 2017 status post removal of 1250 mL of fluid
Pathology negative for malignancy
# FULL code
# DVT prophylaxis- WILFREDO
Anticipated Discharge: 24 - 48 hours
Subjective/Interval History
-
Date of Service: December 19, 2023
Objective Data
-
Labs:
Laboratory Results
12/19/23
04:45
WBC 6.8
Hgb 13.3
Hct 39.5
Plt Count 135
Sodium 136
Potassium 3.6
Chloride 104
Carbon Dioxide 27
BUN 34 H
Creatinine 1.0
Glucose 87
Calcium 9.1
Vital Signs:
Vital Signs
Temp Pulse Resp BP Pulse Ox
97.9 F 101 24 115/74 96
12/19/23 07:30 12/19/23 10:00 12/19/23 10:00 12/19/23 07:01 12/19/23 07:01
I&O
12/18/23 12/19/23 12/20/23
06:59 06:59 06:59
Intake Total 720 / 720 720 / 720
Output Total 1625 / 1625 1650 / 1650
Balance -905 / -905 -930 / -930
[2023-12-19] MEDS: KCL 20 MEQ PO (13:32)
--- NOTE | 2023-12-19 19:23 | PTCARENOTE ---
pt downgraded to telemetry and assigned to rrom 316. pt made aware. attempted to call report to floor but will callback when able. reported off to hourly shift rn who will give report to [facility].
[2023-12-20] VITALS (8 sets, daily range): BP systolic 75–115; BP diastolic 52–81; BMI 21.6
[2023-12-20 07:59] LABS: Blood Urea Nitrogen 34 mg/dl (9-20); Calcium 9.1 mg/dl (8.4-10.2); Carbon Dioxide 32 mmol/L (22-30); Chloride 102 mmol/L (98-107); Estimated Creatinine Clearance 52 ml/min; Glucose 88 mg/dl (70-99); Magnesium 2.1 mg/dl (1.6-2.3); Potassium 3.9 mmol/L (3.5-5.1); Sodium 136 mmol/L (135-145); eGFR > 60.00
[2023-12-20] MEDS: HEPARIN 5000 UNITS SC ×2 (08:00→19:38)
[2023-12-20] MEDS: LASIX 40 MG IV ×2 (08:00→16:43)
[2023-12-20] MEDS: KCL 20 MEQ PO (08:00)
--- NOTE | 2023-12-20 09:27 | W.PN.CD ---
Today's Communication / Plan
-
Pt requesting right thoracentesis, not unreasonable
Continue Lasix 40 IV BiD
Add Aldactone, low dose
Impression / Plan
-
83M with CM, EF 10% AF, MR s/p MVRe, Hx LA thrombus, NSVT admitted with HFrEF
Acute on chronic HFrEF (EF 10%):
-Volume status is improving.
-Continue Lasix 40 mg IV BID; goal weight 130 lbs (59 kg) or so (currently 141 pounds).
-Continue to monitor daily weights, I/O, creatinine.
-He was treated in [facility] for the last five years (sporadically). He returned to us in August 2023 with HF, AF, LA thrombus, and NSVT
- GDMT Hx:
������ �- He cannot tolerate HF BB (reviewed [facility] [place] Strip Polisher notes, and he had the same problem).
- Likely declined ICD.
������ �- in 2019, he was able to tolerate enalapril 2.5 po qd
������ �- in 2019, he was intolerant to eplerenone (Headache)
- Will try adding low dose Aldactone
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
- he stopped warfarin on his own while in [facility] (perhaps around 2018)
- He stopped apixaban two weeks ago due to hematuria.
Bioprosthetic mitral valve replacement
-Relatively stable (NEVAEH 10/08/2023)
AF - currently NSR
Severe MR - MVRe looks good
NSVT - noted previously on telemetry; stable overnight.
Urinary retention - Mr. Moreau feels he went downhill with BPH meds, but it seems more coincidental
Subjective:
No major events overnight.
Data:
�������TTE Sep 15: EF 10-15%, severe ONEL, bio MVR OK, mod TR with PASP 51 mmHg
�������TTE/NEVAEH Oct 08: EF 10-15%, 4 chamber dilation, LA thrombus, bio MVR OK, moderate TR
CT Oct 08: LA thrombus attached to LA clip
�����
Physical Exam
Vital Signs/Labs
Vital Signs
Temp Pulse Resp BP Pulse Ox
97.4 F 80 16 111/65 99
12/20/23 07:30 12/20/23 08:10 12/20/23 07:30 12/20/23 08:00 12/20/23 07:30
12/19/23 12/20/23 12/21/23
06:59 06:59 06:59
Actual Weight 64.2 kg 64.274 kg
12/19/23 04:45
12/20/23 07:07
Magnesium 2.1 mg/dl (1.6-2.3) 12/20/23 07:07
12/16/23
14:25
Apz-V-Nnqmvelgriq Pept 12132
LAB Results
12/17/23 12/17/23
10:31 16:57
Troponin I 0.051 H* D 0.043 H*
Physical Exam
Constitutional: No acute distress
EENT: Anicteric
Cardiovascular: Rhythm & rate is regular and Pedal edema is absent
Respiratory: Respiratory effort normal and Lungs clear to auscul. (But greatly diminishes right 1/2 way up)
GI: Soft and Distention absent
Neuro/Psych: AO x 3
Data Reviewed
-
Date of Service: December 20, 2023
[2023-12-20 11:01] LABS: LDH 261 U/L (120-246); Total Protein 6.1 g/dl (6.3-8.2)
--- NOTE | 2023-12-20 11:06 | PN.CDI ---
CDI
- -
CDI:
Physician Documentation Request
Admit Date: 12/16/23 20:55
Dear Doctor Be,
Please review the following and provide your response in the progress notes.
Clinical Indicators:
- 12/18 Cardiology 'nonischemic myocardial injury in the setting of CHF'
- 12/18 PN 'Non-TX troponin elevation'
In an attempt to clarify potentially conflicting documentation, please clarify the etiology of the elevated troponins:
Non-ischemic myocardial injury
Clinically insignificant abnormal lab value
Other
Use of terms such as suspected, likely, concern for, or probable (associated with a specific diagnosis that is being evaluated, monitored, or treated as if it exists) are acceptable and can be coded in the inpatient setting, when documented at the
time of discharge.
Thank you,
Shant Maria RN
CDI Specialist
Please use your independent medical judgment in providing your response.
[2023-12-20] MEDS: ALDACTONE 12.5 MG PO (12:04)
[2023-12-20 12:11] LABS: Body Fluid Amylase < 30 U/L; Body Fluid Glucose 102 mg/dl; Body Fluid LDH 97 U/L; Body Fluid Protein < 2.0 g/dl; Body Fluid Triglycerides < 30 mg/dl
[2023-12-20 13:29] LABS: Body Fluid WBC 1066 /CUMM
[2023-12-20 13:30] LABS: Body Fluid Second Tech AMA
--- NOTE | 2023-12-20 14:52 | W.PN.HOSP.TC ---
Today's Communication/Plan
-
Daily standing weights
Patient thinks his 135 pound is baseline for him
Assessment / Plan
Assessment / Plan
83y M with PMH significant for CHFrEF who presents to ED complaining of 2 weeks of weight gain, fatigue and increased edema.
He stated that he was feeling well after the hospitalization here in September. He had frequency of urination and saw Dr. Mcgrath. He was placed on Macrobid after cystoscopy along with finasteride and Flomax. Patient stated that ever since then he
has gained weight and he stopped taking all the medicines last week. He gained 15 pounds at home
CVS: S1-S2 normal
Chest: rales left base, Decreased breath sounds right base
Abdomen: Soft, NT / Bowel sounds present
Extremities: No edema, normal pulses
ELECTRIC HOIST OPERATOR: Non focal exam
CXR: Progressive moderate right pleural effusion. Suspect trace left pleural effusion. Stable cardiomegaly. Stable mild vascular congestion.
#Acute on Chronic HFrEF
Mitral Valve Disease s/p BioMVR
- BP marginal in the ED and patient was started on Levophed for BP support.
- Levophed just stopped around 0915 on 12/16/23
- Cont Lasix IV for now and follow I/Os, daily weights
- Cardiology following
- orthostatic VS NEG
- Monitor for clinical improvement.
-Low-dose Aldactone added
- GDMT were unable to be initiated during last visit due to hypotension.
-Continue Farxiga
# Right pleural effusion
- S/P Thoracentesis 12/19/23 -right with 900 ml fluid removed.
# Non-MS troponin elevation
# Atrial Mass / Lesion
- Suspected thrombus on last admission -potential left atrial clip
-Patient had stopped Coumadin in [place] in 2019
- Was started on Eliquis , but this was discontinued 2 weeks ago due to hematuria which has since resolved.
- He is at high risk but prefers to be off of anticoagulation now.
# Severe mitral regurgitation-HX bioprosthetic MVR in 2017 [place]
# Paroxysmal atrial fibrillation-in sinus rhythm now
Currently diagnosed in 2017
Patient was not on anticoagulation as outpatient for unclear reasons
2017 he was started on Eliquis at that admission and was discharged.
Patient states that after he got the mitral valve replaced at [facility] he was not discharged on Eliquis.
# NSVT-not a candidate for ICD per cardiology notes
# Urinary Frequency
- No symptoms of dysuria, frequency
- Completed 1 month of Macrobid, patient does not want to go back on Flomax and Proscar for now.
- Monitor for any new / worsening symptoms.
-I discussed that above medicines do not cause fluid retention however he does not want to take it now.
# History of right pleural effusion in 2017 status post removal of 1250 mL of fluid
Pathology negative for malignancy
# FULL code
# DVT prophylaxis- WILFREDO
Anticipated Discharge: Within 24 hours
Subjective/Interval History
-
Date of Service: December 20, 2023
Objective Data
-
Labs:
Laboratory Results
12/20/23
07:07
Sodium 136
Potassium 3.9
Chloride 102
Carbon Dioxide 32 H
BUN 34 H
Creatinine 1.0
Glucose 88
Calcium 9.1
Vital Signs:
Vital Signs
Temp Pulse Resp BP Pulse Ox
97.4 F 76 16 102/64 94
12/20/23 11:50 12/20/23 12:04 12/20/23 11:50 12/20/23 12:04 12/20/23 11:50
I&O
12/19/23 12/20/23 12/21/23
06:59 06:59 06:59
Intake Total 720 / 720 200 / 200
Output Total 1650 / 1650 1250 / 1250
Balance -930 / -930 -1050 / -1050
[2023-12-21] VITALS (11 sets, daily range): BP systolic 88–119; BP diastolic 52–82; BMI 21.0
[2023-12-21 06:59] LABS: Blood Urea Nitrogen 39 mg/dl (9-20); Calcium 9.4 mg/dl (8.4-10.2); Carbon Dioxide 31 mmol/L (22-30); Chloride 102 mmol/L (98-107); Estimated Creatinine Clearance 46 ml/min; Glucose 86 mg/dl (70-99); Potassium 4.1 mmol/L (3.5-5.1); Sodium 138 mmol/L (135-145); eGFR > 60.00
--- NOTE | 2023-12-21 07:39 | W.PN.CD ---
Today's Communication / Plan
-
-transition to Lasix 60 po BID and observe
-spironolactone added
-He stopped apixaban two weeks ago due to hematuria -> he is willing to restart now. I will use 2.5 since our goal weight as OP is < 60 kg
Impression / Plan
-
83M with CM, EF 10% AF, MR s/p MVRe, Hx LA thrombus, NSVT admitted with HFrEF
Acute on chronic HFrEF (EF 10%):
-Volume status is improving.
-transition to Lasix 60 po BID and observe
-Continue to monitor daily weights, I/O, creatinine.
-He was treated in [facility] for the last five years (sporadically). He returned to us in August 2023 with HF, AF, LA thrombus, and NSVT
- GDMT Hx:
������ �- He cannot tolerate HF BB (reviewed [facility] Electron Beam Operator notes, and he had the same problem).
������ �- in 2019, he was able to tolerate enalapril 2.5 po qd
������ �- in 2019, he was intolerant to eplerenone (Headache)
- Will try adding low dose Aldactone
LA thrombus
- he stopped warfarin on his own while in [facility] (perhaps around 2018)
- He stopped apixaban two weeks ago due to hematuria -> he is willing to restart now. I will use 2.5 since our goal weight as OP is < 60 kg
Bioprosthetic mitral valve replacement
-Relatively stable (NEVAEH 10/08/2023)
AF - currently NSR
Severe MR - MVRe looks good
NSVT - noted previously on telemetry; stable overnight.
Urinary retention - Mr. Moreau feels he went downhill with BPH meds, but it seems more coincidental
Subjective:
Breathing much improved after thoracentesis
Data:
�������TTE Sep 15: EF 10-15%, severe ONEL, bio MVR OK, mod TR with PASP 51 mmHg
�������TTE/NEVAEH Oct 08: EF 10-15%, 4 chamber dilation, LA thrombus, bio MVR OK, moderate TR
CT Oct 08: LA thrombus attached to LA clip
� Laboratory Data
12/19/23 12/21/23
04:45 05:59
Hgb 13.3
Creatinine 1.1
Selected Entries
10/13/23
06:00 12/21/23
06:00
Actual Weight 137 lb 137 lb 14.4 oz
Generic Name Dose Route Start Last Admin
Trade Name Freq PRN Reason Stop Dose Admin
Furosemide 40 mg 12/16/23 22:12 12/20/23 16:43
Furosemide 40 Mg (10 Mg/Ml) 4 Ml Vial IV 01/13/24 22:11 40 mg
BID AT 0800,1600 WILFREDO
Dapagliflozin 10 mg 12/19/23 08:00 12/20/23 08:05
Dapagliflozin (Farxiga) 10 Mg Tablet PO 01/16/24 07:59 Not Given
DAILY WILFREDO
Spironolactone 12.5 mg 12/20/23 10:00 12/20/23 12:04
Spironolactone 12.5 Mg Dose (1/2 Of 25 Mg Tablet) PO 01/17/24 09:59 12.5 mg
DAILY WILFREDO
����
Physical Exam
Vital Signs/Labs
Vital Signs
Temp Pulse Resp BP Pulse Ox
36.5 C 84 20 107/52 98
12/21/23 03:42 12/21/23 03:42 12/21/23 03:42 12/21/23 03:42 12/21/23 03:42
12/20/23 12/21/23 12/22/23
06:59 06:59 06:59
Actual Weight 141 lb 11.2 oz 137 lb 14.4 oz
12/19/23 04:45
12/21/23 05:59
Magnesium 2.1 mg/dl (1.6-2.3) 12/20/23 07:07
12/16/23
14:25
Zuf-K-Zvgopvvwndz Pept [id number]
Physical Exam
Constitutional: No acute distress and Comfortable
EENT: Anicteric and Moist mucous membranes
Cardiovascular: Rhythm & rate is regular, Pedal edema is absent, Systolic murmur absent and Diastolic murmur absent
Respiratory: Respiratory effort normal
GI: Soft, Distention absent and Non tender
Neuro/Psych: Alert
Data Reviewed
-
Date of Service: December 21, 2023
EKG: Other (frequent PVCs)
[2023-12-21] MEDS: LASIX 60 MG PO (08:09)
[2023-12-21] MEDS: ELIQUIS 2.5 MG PO ×2 (08:09→19:42)
[2023-12-21] MEDS: ALDACTONE 12.5 MG PO (08:10)
--- NOTE | 2023-12-21 08:52 | CM ---
Reviewed chart, patient at baseline level of functioning. He will return to his hotel as he is in the process of moving and then move to [place] when stable.
Plan: Case management will continue to follow and assist with discharge planning. Home when stable.
--- NOTE | 2023-12-21 10:14 | PTCARENOTE ---
Tele monitor alarming 'vtach', 7 beats visualized on strip. Pt sleeping in bed, equal and bilateral chest rise. Tele monitor and strips changed. Cardiology made aware.
[2023-12-21 11:21] LABS: Magnesium 2.1 mg/dl (1.6-2.3)
--- NOTE | 2023-12-21 14:34 | W.PN.UPDATE ---
Update Note
Progress Note Update
More frequent asymptomatic NSVT reports. K/Mag normal
He has been intolerant to carvedilol -> will try bisoprolol
[2023-12-21] MEDS: ZEBETA 2.5 MG PO (14:50)
--- NOTE | 2023-12-21 15:03 | W.PN.HOSP.TC ---
Today's Communication/Plan
-
BB
Transfer to IVU
Assessment / Plan
Assessment / Plan
83y M with PMH significant for CHFrEF who presents to ED complaining of 2 weeks of weight gain, fatigue and increased edema.
He stated that he was feeling well after the hospitalization here in September. He had frequency of urination and saw Dr. Mcgrath. He was placed on Macrobid after cystoscopy along with finasteride and Flomax. Patient stated that ever since then he
has gained weight and he stopped taking all the medicines last week. He stated he gained 15 pounds at home
CVS: S1-S2 normal, sm at apex
Chest: rales left base, Decreased breath sounds right base
Abdomen: Soft, NT / Bowel sounds present
Extremities: No edema, normal pulses
ELECTRONEURODIAGNOSTIC TECHNICIAN: Non focal exam
CXR: Progressive moderate right pleural effusion. Suspect trace left pleural effusion. Stable cardiomegaly. Stable mild vascular congestion.
# Frequent nonsustained VT's-patient started on bisoprolol. Transferred to IVU for monitoring
-Discussed with the patient regarding ICD
-Patient aware arrythmias can be fatal.
-He had always refused and even now wants to defer to a later time.
#Acute on Chronic HFrEF
Mitral Valve Disease s/p BioMVR
- BP marginal in the ED and patient was started on Levophed for BP support.
- Levophed just stopped around 0915 on 12/16/23
- Cont Lasix IV for now and follow I/Os, daily weights
- Cardiology following
- Orthostatic VS NEG
- Monitor for clinical improvement.
- Low-dose Aldactone added
- GDMT were unable to be initiated during last visit due to hypotension.
- Continue Farxiga
# Non-MT troponin elevation
# Atrial Mass / Lesion
- Suspected thrombus on last admission -potential left atrial clip
- Patient had stopped Coumadin in [place] in 2019
- Was started on Eliquis , but this was discontinued 2 weeks ago due to hematuria which has since resolved.
- He is at high risk but prefers to be off of anticoagulation now.
# Severe mitral regurgitation-HX bioprosthetic MVR in 2017 [place]
# Paroxysmal atrial fibrillation-in sinus rhythm now
Currently diagnosed in 2017
Patient was not on anticoagulation as outpatient for unclear reasons
2017 he was started on Eliquis at that admission and was discharged.
Patient states that after he got the mitral valve replaced at [facility] he was not discharged on Eliquis.
# NSVT-not a candidate for ICD per cardiology notes
# Urinary Frequency
- No symptoms of dysuria, frequency
- Completed 1 month of Macrobid, patient does not want to go back on Flomax and Proscar for now.
- Monitor for any new / worsening symptoms.
- I discussed that above medicines do not cause fluid retention however he does not want to take it now.
# History of right pleural effusion in 2017 status post removal of 1250 mL of fluid
Pathology negative for malignancy
S/P Thoracentesis 12/19/23 -right with 900 ml fluid removed.
# FULL code
# DVT prophylaxis- WILFREDO
Patient given permission to call his or daughter. 's number is [phone]
Daughter Binta [phone]
Called Patient's . Patient is not very compliant with medicines or following up with nuclear station operator. Family feels that he may have start of dementia. 1 day he was verbally abusive towards and left. Family is aware that he has heart
disease. I reviewed about his ejection fraction, mass, he does not want an ICD at this point, about him stopping Eliquis and now restarted, compliance with fluid intake, salt intake and taking medicines. Family confirms that he is not compliant
with taking medicines or following restrictions.
Patient stated that his moved to [place] and he is planning to move to [place] also. Compliance with medicines to improve heart muscle function, diet to reduce fluid retention all discussed with the patient.
D/W re arrhythmias, Bisoprolol started
Anticipated Discharge: 24 - 48 hours
Subjective/Interval History
-
Date of Service: December 21, 2023
Objective Data
-
Labs:
Laboratory Results
12/21/23
05:59
Sodium 138
Potassium 4.1
Chloride 102
Carbon Dioxide 31 H
BUN 39 H
Creatinine 1.1
Glucose 86
Calcium 9.4
Vital Signs:
Vital Signs
Temp Pulse Resp BP Pulse Ox
97.3 F 57 16 105/66 99
12/21/23 11:00 12/21/23 11:00 12/21/23 11:00 12/21/23 11:00 12/21/23 11:00
I&O
12/20/23 12/21/23 12/22/23
06:59 06:59 06:59
Intake Total 200 / 200 840 / 840
Output Total 1250 / 1250 1150 / 1150
Balance -1050 / -1050 -310 / -310
[2023-12-21] MEDS: LASIX PO (16:27)
--- NOTE | 2023-12-21 16:27 | W.PN.UPDATE ---
Addendum entered and electronically signed by Xiao Lr MD 12/21/23 16:40:
change transfer to IMU in case if he needs pressors
Addendum entered and electronically signed by Xiao Lr MD 12/21/23 16:35:
Added 250 ml bolus pr
Original Note:
Update Note
Progress Note Update
BP low after Bisoprolol
Pt asymptomatic
Hold evening dose of Lasix
Keep bed rest
Add Midodrine
Transfer to IVU awaited
Cardiology updated.
[2023-12-21] MEDS: ProAmatine 5 MG PO ×2 (16:53→18:04)
[2023-12-21] MEDS: NSS 250 IV (16:54)
--- NOTE | 2023-12-21 17:02 | W.PN.UPDATE ---
Update Note
Progress Note Update
Patient seen and examined.
He is hypotensive and asymptomatic.
He was having increase in PVCs in addition to NSVT. Bisoprolol given and now hypotensive.
Hold diuresis. IV fluid being given.
--- NOTE | 2023-12-21 17:47 | TRANSFER ---
Report called to IMU nurse ruth Burns to be transferred momentarily.
[2023-12-22] VITALS (57 sets, daily range): BP systolic 67–167; BP diastolic 52–148; PULSE 73–82; BMI 21.1
--- NOTE | 2023-12-22 04:53 | PTCARENOTE ---
no acute events overnight- BP's have been a little soft at times but stable.
[2023-12-22 06:11] LABS: Blood Urea Nitrogen 46 mg/dl (9-20); Calcium 9.4 mg/dl (8.4-10.2); Carbon Dioxide 27 mmol/L (22-30); Chloride 101 mmol/L (98-107); Estimated Creatinine Clearance 42 ml/min; Glucose 89 mg/dl (70-99); Potassium 4.4 mmol/L (3.5-5.1); Sodium 137 mmol/L (135-145); eGFR > 60.00
--- NOTE | 2023-12-22 07:47 | W.PN.CD ---
Today's Communication / Plan
-
- treat his hypotension with norepinephrine and add amiodarone for his NSVT.
- Establish GOC as below
Impression / Plan
-
Impression: 83M with CM, EF 10% AF, MR s/p [place], Hx LA thrombus, NSVT admitted with HFrEF
Plan
Hypotension - after spironolactone, furosemide, and bisoprolol.
- meds held, midodrine added, and IVF given -> BP improved
- he has been intolerant to BB at least three times
NSVT
- add amiodarone
- establish GOC (below)
Acute on chronic HFrEF (EF 10%):
- weight is near goal and he can lay flat without dyspnea
- GDMT Hx:
������ �- He cannot tolerate HF BB (reviewed [facility] Stock Unloader notes, and he had the same problem).
������ �- in 2019, he was able to tolerate enalapril 2.5 po qd
������ �- in 2019, he was intolerant to eplerenone (Headache)
LA thrombus
- he stopped warfarin on his own while in [facility] (perhaps around 2019)
- He stopped apixaban two weeks ago due to hematuria -> he is willing to restart now. I will use 2.5 since our goal weight as OP is < 60 kg
AF - currently NSR
Severe MR [place] looks good
Urinary retention - Mr. Moreau feels he went downhill with BPH meds, but it seems more coincidental
Dispo
- we had long conversation regarding his diagnosis and prognosis. I explained that he has a profoundly weak heart and has not responded well to standard treatment. We could escalate to inotropes/pressors (probably require amiodarone as well).
Alternatively, we could pivot to hospice care. He asked questions and seems to understand. Unfortunately, his and family moved to [place] and he would like to join them [place] (clear out his storage room/hotel and take a train down). I think this
has a very high likelihood of going poorly - at the least, he would likely require admission in [place] when he got down and, at the worst, he would have a HF or before or during the trip.
- I called his at his request -voicemail
- Mr. Moreau will think about his plans, but in the meantime, we will treat his hypotension with norepinephrine and add amiodarone for his NSVT.
CCT 45 minutes
Subjective:
Breathing much improved after thoracentesis. He denies CP or palpitations
Data:
�������TTE Sep 15: EF 10-15%, severe ONEL, bio MVR OK, mod TR with PASP 51 mmHg
�������TTE/NEVAEH Oct 08: EF 10-15%, 4 chamber dilation, LA thrombus, bio MVR OK, moderate TR
CT Oct 08: LA thrombus attached to LA clip
Physical Exam
Vital Signs/Labs
Vital Signs
Temp Pulse Resp BP Pulse Ox
36.3 C 97 23 97/53 97
12/22/23 03:00 12/22/23 06:02 12/22/23 06:02 12/22/23 06:02 12/21/23 19:45
12/21/23 12/22/23 12/23/23
06:59 06:59 06:59
Actual Weight 137 lb 14.4 oz 138 lb 7.205 oz
12/19/23 04:45
12/22/23 05:34
Magnesium 2.1 mg/dl (1.6-2.3) 12/21/23 05:59
12/16/23
14:25
Mfk-Q-Cvjfatrbdif Pept [id number]
Physical Exam
Constitutional: No acute distress
EENT: Anicteric and Moist mucous membranes
Cardiovascular: Rhythm & rate is regular, Pedal edema is absent, Systolic murmur absent and Diastolic murmur absent
Respiratory: Respiratory effort normal
GI: Soft, Distention absent, Non tender and Normal bowel sounds
Neuro/Psych: Alert
Data Reviewed
-
Date of Service: December 22, 2023
[2023-12-22] MEDS: ELIQUIS 2.5 MG PO ×2 (08:01→19:48)
[2023-12-22] MEDS: ALDACTONE PO (08:03)
[2023-12-22] MEDS: ProAmatine 5 MG PO (08:03)
[2023-12-22] MEDS: LEVOPHED 250 IV (09:04)
[2023-12-22] MEDS: CORDARONE 103 MG IV (09:04)
--- NOTE | 2023-12-22 09:56 | W.PN.HOSP.TC ---
Addendum entered and electronically signed by Xiao Lr MD 12/22/23 10:57:
non ischemic myocardial injury
Original Note:
Today's Communication/Plan
-
Amio
Levophed
Watch on monitor
Assessment / Plan
Assessment / Plan
83y M with PMH significant for CHFrEF who presents to ED complaining of 2 weeks of weight gain, fatigue and increased edema.
He stated that he was feeling well after the hospitalization here in September. He had frequency of urination and saw Dr. Mcgrath. He was placed on Macrobid after cystoscopy along with finasteride and Flomax. Patient stated that ever since then he
has gained weight and he stopped taking all the medicines last week. He stated he gained 15 pounds at home
CVS: S1-S2 normal, sm at apex
Chest: rales left base, Decreased breath sounds right base
Abdomen: Soft, NT / Bowel sounds present
Extremities: No edema, normal pulses
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
CXR: Progressive moderate right pleural effusion. Suspect trace left pleural effusion. Stable cardiomegaly. Stable mild vascular congestion.
# Frequent nonsustained VT's-patient started on bisoprolol. Transferred to IMU for monitoring
-Amiodarone started along with norepinephrine
#Acute on Chronic HFrEF
Mitral Valve Disease s/p BioMVR
- BP marginal in the ED and patient was started on Levophed for BP support soon after admission.
- Levophed just stopped around on 12/16/23 restarted 12/22/2023 with amiodarone
- Lasix placed on hold as blood pressure on the low side. Weight stable
- Cardiology following
- Low-dose of beta-jasmine and Aldactone added however blood pressure could not tolerate it. Beta-jasmine stopped
- Received 250 mL of fluid on 12/21/2023 because of low blood pressure
- GDMT extremely difficult because of tenuous blood pressure
- Continue Farxiga
# Non-[place] troponin elevation
# Atrial Mass / Lesion
- Suspected thrombus on last admission -potential left atrial clip
- Patient had stopped Coumadin in [place] in 2019
- Was started on Eliquis , but this was discontinued 2 weeks ago due to hematuria which has since resolved.
- Patient agreed to be started and Eliquis was restarted at 2.5 L p.o. twice daily
# Severe mitral regurgitation-HX bioprosthetic MVR in 2017 [place]
# Paroxysmal atrial fibrillation-in sinus rhythm now
Currently diagnosed in 2017
-Eliquis. Not on any rate controlling agents
# NSVT-not a candidate for ICD per cardiology notes
# Urinary Frequency
- No symptoms of dysuria, frequency
- Completed 1 month of Macrobid, patient does not want to go back on Flomax and Proscar for now.
- Monitor for any new / worsening symptoms.
- I discussed that above medicines do not cause fluid retention however he does not want to take it now. Blood pressure will not allow alpha blockers
# History of right pleural effusion in 2017 status post removal of 1250 mL of fluid
Pathology negative for malignancy
S/P Thoracentesis 12/19/23 -right with 900 ml fluid removed.
# FULL code
# DVT prophylaxis- WILFREDO
Patient given permission to call his or daughter.
's number is [phone]
Daughter Binta [phone]
Detailed conversation with family yesterday '. 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 Family feels that he may have start of dementia. 1 day he was verbally abusive towards and left. Family is aware
that he has heart disease. I reviewed about his ejection fraction, mass, he does not want an ICD at this point, about him stopping Eliquis and now restarted, compliance with fluid intake, salt intake and taking medicines. Family confirms that he
is not compliant with taking medicines or following restrictions. '
Patient stated that his moved to [place] and he is planning to move to [place] also.
Discussed with nursing at bedside
Prognosis guarded given arrhythmias and poor ejection fraction. Antiarrhythmics initiated now. Goal-directed medical therapy is not possible because of patient's blood pressure
Anticipated Discharge: > 48 hours
Subjective/Interval History
-
Date of Service: December 22, 2023
Objective Data
-
Labs:
Laboratory Results
12/22/23
05:34
Sodium 137
Potassium 4.4
Chloride 101
Carbon Dioxide 27
BUN 46 H
Creatinine 1.2
Glucose 89
Calcium 9.4
Vital Signs:
Vital Signs
Temp Pulse Resp BP Pulse Ox
96.9 F L 79 24 89/78 97
12/22/23 07:20 12/22/23 09:22 12/22/23 09:22 12/22/23 09:22 12/21/23 19:45
I&O
12/21/23 12/22/23 12/23/23
06:59 06:59 06:59
Intake Total 840 / 840 720 / 720
Output Total 1150 / 1150 350 / 350
Balance -310 / -310 370 / 370
--- NOTE | 2023-12-22 10:22 | PTCARENOTE ---
Assumed care of patient at beginning of this shift from previous RN. Dr Lucero in to speak with patient and discuss outcomes (refer to his note). IV bolus amiodarone ordered as well as levophed infusion. BP currently 97/74 on 4mcg/kg/min levophed
initial rate. Patient instructed to not get OOB without staff present d/t side effects of medication. Patient verbalized understanding and compliant with using call zavala. Patient stated he is concerned that his belongings are in a hotel, but stated
he may be able to contact a friend to help get them. See worklist for full assessment and vital signs; see MAR for med administration.
--- NOTE | 2023-12-22 12:44 | PTCARENOTE ---
Patient found OOB in bathroom, he had disconnected himself from the monitor, bp and IV Levophed infusion. Patient assisted back to bed and bed alarm initiated for patient safety. Reiterated importance of using call zavala and not to get up without
staff assistance, importance of continuous monitoring of heart/bp and importance of maintaining Levophed infusion and not disconnecting himself. Patient verbalized understanding. BP 103/82.
[2023-12-22] MEDS: PACERONE 400 MG PO ×2 (16:34→21:53)
--- NOTE | 2023-12-22 19:52 | PTCARENOTE ---
Pt received from day shift RN. Pt AAO, agreeable to care. pt NSR on the monitor with BBB and multiple PVCs. Pt with +2 lower ext edema. Hands and feet cold bilaterally. Pt on 2mcg/min of levo. most recent BP 1333/61 (79). HR 76. Pt using urinal at
bedside, voiding without difficulty. Please see full nursing shift assessment for head to toe. Call zavala in reach.
--- NOTE | 2023-12-22 20:00 | PTCARENOTE ---
Pt BP 133/61 (79). levo at 2mcg/min. Rate decreased to 1mcg/min.
[2023-12-23] VITALS (52 sets, daily range): BP systolic 76–120; BP diastolic 51–94; PULSE 71–133; BMI 21.1
[2023-12-23 05:01] LABS: Blood Urea Nitrogen 53 mg/dl (9-20); Calcium 9.4 mg/dl (8.4-10.2); Carbon Dioxide 25 mmol/L (22-30); Chloride 100 mmol/L (98-107); Estimated Creatinine Clearance 39 ml/min; Glucose 88 mg/dl (70-99); Potassium 4.2 mmol/L (3.5-5.1); Sodium 133 mmol/L (135-145); eGFR 54.85
[2023-12-23] MEDS: LEVOPHED 250 IV (05:07)
--- NOTE | 2023-12-23 05:14 | PTCARENOTE ---
Pt is currently being treated for low BP's. Reasoning as to why Pt cannot ambulate independently and the necessity of using the call zavala to ring for assistance before exiting the bed to use the toilet was provided by this RN several times
throughout the night. Pt needs reinforcement. Bed alarm on, call zavala in reach.
[2023-12-23] MEDS: PACERONE 400 MG PO ×3 (07:49→22:46)
[2023-12-23] MEDS: ELIQUIS 2.5 MG PO ×2 (07:49→20:13)
[2023-12-23] MEDS: ALDACTONE 12.5 MG PO (08:44)
--- NOTE | 2023-12-23 08:47 | W.PN.CD ---
Today's Communication / Plan
-
levophed weaned off
stop farxiga (patient declines taking this med)
add back PO lasix 40mg daily
trend BP
Impression / Plan
-
Impression: 83M with CM, EF 10% AF, MR s/p MVRe, Hx LA thrombus, NSVT admitted with HFrEF
Plan
Hypotension - after spironolactone, furosemide, and bisoprolol.
- he has been intolerant to BB at least three times
-improved: levophed weaned off this AM
NSVT
- add amiodarone: load 400mg tid while inpatient, then d/c on 400mg daily
Acute on chronic HFrEF (EF 10%):
- weight is near goal and he can lay flat without dyspnea
- GDMT Hx:
������ �- He cannot tolerate HF BB (reviewed [facility] Production Superintendent notes, and he had the same problem).
������ �- in 2019, he was able to tolerate enalapril 2.5 po qd
������ �- in 2019, he was intolerant to eplerenone (Headache)
-he declines farxiga
-max tolerated regimen at this time is aldactone 12.5mg daily, along with lasix 40mg daily
LA thrombus
- he stopped warfarin on his own while in [facility] (perhaps around 2019)
- He stopped apixaban two weeks ago due to hematuria -> he is willing to restart now. I will use 2.5 since our goal weight as OP is < 60 kg
AF - currently NSR
Severe MR - MVRe looks good
Urinary retention - Mr. Moreau feels he went downhill with BPH meds, but it seems more coincidental
Dispo
- Dr Lucero had long conversation regarding his diagnosis and prognosis. Explained that he has a profoundly weak heart and has not responded well to standard treatment. We could escalate to inotropes/pressors (probably require amiodarone as
well). Alternatively, we could pivot to hospice care. He asked questions and seems to understand. Unfortunately, his and family moved to [place] and he would like to join them [place] (clear out his storage room/hotel and take a train down). High
likelihood of going poorly - at the least, he would likely require admission in [place] when he got down and, at the worst, he would have a HF or before or during the trip.
- Called his at his request -voicemail
- Mr. Moreau will think about his plans, but in the meantime, we will treat his hypotension with norepinephrine and add amiodarone for his NSVT.
Subjective:
SOB better.
Data:
�������TTE Sep 15: EF 10-15%, severe ONEL, bio MVR OK, mod TR with PASP 51 mmHg
�������TTE/NEVAEH Oct 08: EF 10-15%, 4 chamber dilation, LA thrombus, bio MVR OK, moderate TR
CT Oct 08: LA thrombus attached to LA clip
Physical Exam
Vital Signs/Labs
Vital Signs
Temp Pulse Resp BP Pulse Ox
97.6 F 75 17 103/81 98
12/23/23 07:41 12/23/23 08:00 12/23/23 08:00 12/23/23 08:44 12/22/23 22:05
12/22/23 12/23/23 12/24/23
06:59 06:59 06:59
Actual Weight 62.8 kg 62.9 kg
12/19/23 04:45
12/23/23 03:57
Magnesium 2.1 mg/dl (1.6-2.3) 12/21/23 05:59
12/16/23
14:25
Ikp-E-Bamwtsbdxai Pept [id number]
Physical Exam
Constitutional: No acute distress and Comfortable
EENT: Moist mucous membranes
Cardiovascular: Rhythm & rate is regular, Pedal edema present, JVD present and Systolic murmur present
Respiratory: Respiratory effort normal and Lungs clear to auscul.
GI: Soft, Distention absent and Flat
Neuro/Psych: AO x 3
Data Reviewed
-
Date of Service: December 23, 2023
EKG: Other (Tele: NSR, PVC's)
Labs: Labs Reviewed by me
--- NOTE | 2023-12-23 09:10 | CM ---
Patient with Hx Cardiomyopathy with Dx CHF, pleural effusion, LA thrombus. PT & OT Evals; no needs.
Plan discharge to [facility].
[2023-12-23] MEDS: LASIX 40 MG PO (09:14)
--- NOTE | 2023-12-23 09:30 | PTCARENOTE ---
Assumed care of patient at beginning of this shift from previous RN with levophed infusing at 2mcg/min; able to decrease to 1mcg/min then off. Dr Rojas in to see patient this morning and instructed to give aldactone as ordered; lasix po also ordered
and given. Patient currently sitting in chair with chair alarm activated for patient safety; bp 94/67. Denies dizziness, chest pain and lightheadedness. See worklist for full assessment and vital signs.
--- NOTE | 2023-12-23 10:46 | W.PN.HOSP.TC ---
Today's Communication/Plan
-
PT OT
Lasix
Assessment / Plan
Assessment / Plan
83y M with PMH significant for CHFrEF who presents to ED complaining of 2 weeks of weight gain, fatigue and increased edema.
He stated that he was feeling well after the hospitalization here in September. He had frequency of urination and saw Dr. Mcgrath. He was placed on Macrobid after cystoscopy along with finasteride and Flomax. Patient stated that ever since then he
has gained weight and he stopped taking all the medicines last week. He stated he gained 15 pounds at home
CVS: S1-S2 normal, sm at apex
Chest: rales left base, Decreased breath sounds right base
Abdomen: Soft, NT / Bowel sounds present
Extremities: pedal edema edema, normal pulses
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
CXR: Progressive moderate right pleural effusion. Suspect trace left pleural effusion. Stable cardiomegaly. Stable mild vascular congestion.
# Frequent nonsustained VT's-patient started on bisoprolol. Transferred to IMU for monitoring
-Amiodarone started along with norepinephrine
#Acute on Chronic HFrEF
Mitral Valve Disease s/p BioMVR
- BP marginal in the ED and patient was started on Levophed for BP support soon after admission.
- Levophed just stopped around on 12/16/23 restarted 12/22/2023 with amiodarone. stopped now
- Lasix placed on hold as blood pressure on the low side then restarted 12/23/23
- Cardiology following
- Low-dose of beta-jasmine and Aldactone added however blood pressure could not tolerate it. Beta-jasmine stopped
- Received 250 mL of fluid on 12/21/2023 because of low blood pressure
- GDMT extremely difficult because of tenuous blood pressure and patient refusal.
- He is refusing Farxiga
# Non-[place] troponin elevation
# Atrial Mass / Lesion
- Suspected thrombus on last admission -potential left atrial clip
- Patient had stopped Coumadin in [place] in 2019
- Was started on Eliquis , but this was discontinued 2 weeks ago due to hematuria which has since resolved.
- Patient agreed to be started and Eliquis was restarted at 2.5 L p.o. twice daily
# Severe mitral regurgitation-HX bioprosthetic MVR in 2016 [place]
# Paroxysmal atrial fibrillation-in sinus rhythm now
Currently diagnosed in 2017
-Eliquis. Not on any rate controlling agents
# NSVT-not a candidate for ICD per cardiology notes
# Urinary Frequency
- No symptoms of dysuria, frequency
- Completed 1 month of Macrobid, patient does not want to go back on Flomax and Proscar for now.
- Monitor for any new / worsening symptoms.
- I discussed that above medicines do not cause fluid retention however he does not want to take it now. Blood pressure will not allow alpha blockers
# History of right pleural effusion in 2017 status post removal of 1250 mL of fluid
Pathology negative for malignancy
S/P Thoracentesis 12/19/23 -right with 900 ml fluid removed.
# FULL code
# DVT prophylaxis- WILFREDO
Patient given permission to call his or daughter.
's number is [phone]
Daughter Binta [phone]
D/W Cards
Discussed with nursing at bedside
Prognosis guarded given arrhythmias and poor ejection fraction. Antiarrhythmics initiated now. Goal-directed medical therapy is not possible because of patient's blood pressure
PT OT
Anticipated Discharge: Within 24 hours
Subjective/Interval History
-
Date of Service: December 23, 2023
Objective Data
-
Labs:
Laboratory Results
12/23/23
03:57
Sodium 133 L
Potassium 4.2
Chloride 100
Carbon Dioxide 25
BUN 53 H
Creatinine 1.3
Glucose 88
Calcium 9.4
Vital Signs:
Vital Signs
Temp Pulse Resp BP Pulse Ox
97.6 F 72 26 99/70 95
12/23/23 07:41 12/23/23 10:00 12/23/23 10:00 12/23/23 10:00 12/23/23 08:14
I&O
12/22/23 12/23/23 12/24/23
06:59 06:59 06:59
Intake Total 720 / 720
Output Total 350 / 350
Balance 370 / 370
--- NOTE | 2023-12-23 12:53 | PTCARENOTE ---
Addendum entered by Danielle Brice RN 12/23/23 13:16:
BP 97/79
Original Note:
Patient sat up in chair for a few hours this morning. After walking to his bed, BP 76/60 then 85/70 with recheck; patient asymptomatic. Patient lying in bed, BP 88/66, remains asymptomatic. Dr Rojas and Dr Lr notified via tiger text; instructed
to continue to observe per Dr Rojas. Patient again educated on conserving energy.
[2023-12-24] VITALS (17 sets, daily range): BP systolic 86–114; BP diastolic 47–94; PULSE 69–80; BMI 21.0
[2023-12-24 04:58] LABS: Blood Urea Nitrogen 65 mg/dl (9-20); Carbon Dioxide 22 mmol/L (22-30); Estimated Creatinine Clearance 28 ml/min; Glucose 77 mg/dl (70-99); eGFR 37.12
[2023-12-24 05:11] LABS: Calcium 9.7 mg/dl (8.4-10.2); Chloride 100 mmol/L (98-107); Sodium 134 mmol/L (135-145)
--- NOTE | 2023-12-24 05:15 | PTCARENOTE ---
Addendum entered by Carolyn Shell RN 12/24/23 06:22:
Pt reports hematuria. Pt states this has been happening for weeks. Urine sample in BR to visualize.
Original Note:
No complaints overnight. Calling for assistance appropriately when needing to get OOB; denies any dizziness or cp. Steady gait. Tele showing NSR/SA with BBB & PVCs. On room air. Call zavala and tray table within reach.
[2023-12-24] MEDS: PACERONE 400 MG PO ×3 (08:51→21:54)
[2023-12-24] MEDS: ELIQUIS PO (09:23)
--- NOTE | 2023-12-24 09:28 | W.PN.CD ---
Today's Communication / Plan
-
TAVO: stop aldactone. hold lasix.
hematuria: stop eliquis
Impression / Plan
-
Impression: 83M with CM, EF 10% AF, MR s/p MVRe, Hx LA thrombus, NSVT admitted with HFrEF
Plan
Hypotension - after spironolactone, furosemide, and bisoprolol.
- he has been intolerant to BB at least three times
-improved: levophed weaned off yesterday
TAVO
-stop aldactone
-hold lasix, and re-assess tomorrow
Hematuria
-recurrent with OAC: stop eliquis. High risk situation with KD thrombus. Patient understands risk of CVA.
NSVT
- added amiodarone: load 400mg tid while inpatient, then d/c on 400mg daily
Acute on chronic HFrEF (EF 10%):
- weight is near goal and he can lay flat without dyspnea
- GDMT Hx:
������ �- He cannot tolerate HF BB (reviewed [facility] Jr. Systems Administrator notes, and he had the same problem).
������ �- in 2019, he was able to tolerate enalapril 2.5 po qd
������ �- in 2019, he was intolerant to eplerenone (Headache)
-he declines farxiga
-he does not tolerate GDMT
-lasix held for TAVO: assess to resume tomorrow
LA thrombus
- he stopped warfarin on his own while in [facility] (perhaps around 2019)
- He stopped apixaban two weeks ago due to hematuria
-we tried resuming at 2.5mg bid: recurrent hematuria. Now stopped again.
AF - currently NSR
Severe MR - MVRe looks good
Urinary retention - Mr. Moreau feels he went downhill with BPH meds, but it seems more coincidental
Dispo
- Dr Lucero had long conversation regarding his diagnosis and prognosis. Explained that he has a profoundly weak heart and has not responded well to standard treatment. We could escalate to inotropes/pressors (probably require amiodarone as
well). Alternatively, we could pivot to hospice care. He asked questions and seems to understand. Unfortunately, his and family moved to [place] and he would like to join them [place] (clear out his storage room/hotel and take a train down). High
likelihood of going poorly - at the least, he would likely require admission in [place] when he got down and, at the worst, he would have a HF or before or during the trip.
- Called his at his request -voicemail
- Mr. Moreau will think about his plans, but in the meantime, we will treat his hypotension with norepinephrine and add amiodarone for his NSVT.
Subjective:
SOB better. Hematuria is new today.
Data:
�������TTE Sep 15: EF 10-15%, severe ONEL, bio MVR OK, mod TR with PASP 51 mmHg
�������TTE/NEVAEH Oct 08: EF 10-15%, 4 chamber dilation, LA thrombus, bio MVR OK, moderate TR
CT Oct 08: LA thrombus attached to LA clip
Physical Exam
Vital Signs/Labs
Vital Signs
Temp Pulse Resp BP Pulse Ox
97.8 F 70 19 101/66 99
12/24/23 07:17 12/24/23 08:49 12/24/23 08:49 12/24/23 08:49 12/23/23 22:48
12/23/23 12/24/23 12/25/23
06:59 06:59 06:59
Actual Weight 62.9 kg 62.5 kg
12/19/23 04:45
12/24/23 04:27
Magnesium 2.1 mg/dl (1.6-2.3) 12/21/23 05:59
12/16/23
14:25
Qzx-T-Uebuyzyicxw Pept [id number]
Physical Exam
Constitutional: No acute distress
EENT: Moist mucous membranes
Cardiovascular: Rhythm & rate is regular, Pedal edema present, JVD present and Systolic murmur present
Respiratory: Respiratory effort normal and Lungs clear to auscul.
GI: Soft, Distention absent and Flat
Neuro/Psych: AO x 3
Data Reviewed
-
Date of Service: December 24, 2023
EKG: Other (Tele: SR, PVC's)
Labs: Labs Reviewed by me
--- NOTE | 2023-12-24 09:39 | PTCARENOTE ---
Assumed care of patient at beginning of this shift from previous RN. Patient voided prior to start of this shift and again just after: both times brick colored urine and save in hat. Due for eliquis. Reviewed with Dr Lr (who was in room and saw
urine) and Dr Rojas who placed eliquis on hold. Ortho bp completed: see worklist for VS. Denies feeling dizzy or lightheaded when standing or walking. See worklist for full assessment, interventions and vital signs; see MAR for med administration.
--- NOTE | 2023-12-24 09:58 | W.PN.HOSP.TC ---
Today's Communication/Plan
-
Watch Creat
Hold Lasix, Aldactone, Eliquis
Assessment / Plan
Assessment / Plan
83y M with PMH significant for CHFrEF who presents to ED complaining of 2 weeks of weight gain, fatigue and increased edema.
He stated that he was feeling well after the hospitalization here in September. He had frequency of urination and saw Dr. Mcgrath. He was placed on Macrobid after cystoscopy along with finasteride and Flomax. Patient stated that ever since then he
has gained weight and he stopped taking all the medicines last week. He stated he gained 15 pounds at home
CVS: S1-S2 normal, sm at apex
Chest: rales left base, Decreased breath sounds right base
Abdomen: Soft, NT / Bowel sounds present
Extremities: pedal edema ,normal pulses
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
CXR: Progressive moderate right pleural effusion. Suspect trace left pleural effusion. Stable cardiomegaly. Stable mild vascular congestion.
# Frequent nonsustained VT's
-Patient started on bisoprolol. Did not tolerate and dropped BP. BB Stopped.
-Amiodarone started
-VT better
#Acute on Chronic HFrEF
Mitral Valve Disease s/p BioMVR
- BP marginal in the ED and patient was started on Levophed for BP support soon after admission.
- Levophed just stopped around on 12/16/23 restarted 12/22/2023 with amiodarone. Stopped now
- Lasix placed on hold as creatinine up.
- Cardiology following
- Low-dose of beta-jasmine and Aldactone added however blood pressure could not tolerate it. Beta-jasmine stopped,Aldactone also stopped.
- Received 250 mL of fluid on 12/21/2023 because of low blood pressure
- GDMT extremely difficult because of tenuous blood pressure and patient refusal.
- He is refusing Farxiga
# Non-[place] troponin elevation
# Atrial Mass / Lesion
- Suspected thrombus on last admission -potential left atrial clip
- Patient had stopped Coumadin in [place] in 2019
- Was started on Eliquis , but this was discontinued 2 weeks ago due to hematuria which has since resolved.
- Patient agreed to be started and Eliquis was restarted at 2.5 L p.o. twice daily, But now held as he has Hematuria
# Severe mitral regurgitation-HX bioprosthetic MVR in 2017 [place]
# Paroxysmal atrial fibrillation-in sinus rhythm now
-Diagnosed in 2017
-Not on any rate controlling agents
# NSVT-not a candidate for ICD per cardiology notes
# Urinary Frequency
- No symptoms of dysuria, frequency
- Completed 1 month of Macrobid, patient does not want to go back on Flomax and Proscar for now.
- Monitor for any new / worsening symptoms.
- I discussed that above medicines do not cause fluid retention however he does not want to take it now. Blood pressure will not allow alpha blockers
-Hematuria started. Hold ELiquis and watch. If he no clearing will need Urology eval.
# History of right pleural effusion in 2017 status post removal of 1250 mL of fluid
Pathology negative for malignancy
S/P Thoracentesis 12/19/23 -right with 900 ml fluid removed.
# FULL code
# DVT prophylaxis- WILFREDO
Patient given permission to call his or daughter.
's number is [phone]
Daughter Binta [phone]
D/W Cards
Discussed with nursing at bedside
Prognosis guarded given arrhythmias and poor ejection fraction. Antiarrhythmics initiated now. Goal-directed medical therapy is not possible because of patient's blood pressure
Hematuria precludes using Eliquis
PT OT
Anticipated Discharge: 24 - 48 hours
Subjective/Interval History
-
Date of Service: December 24, 2023
Objective Data
-
Labs:
Laboratory Results
12/24/23
04:27
Sodium 134 L
Potassium
Chloride 100
Carbon Dioxide 22
BUN 65 H
Creatinine 1.8 H
Glucose 77
Calcium 9.7
Vital Signs:
Vital Signs
Temp Pulse Resp BP Pulse Ox
97.8 F 70 19 101/66 99
12/24/23 07:17 12/24/23 08:49 12/24/23 08:49 12/24/23 08:49 12/23/23 22:48
--- NOTE | 2023-12-24 15:36 | CM ---
Patient with Hx Cardiomyopathy with Dx CHF, pleural effusion, LA thrombus. PT & OT Evals; no needs.
[facility]
[2023-12-25] VITALS: BP 93/78
[2023-12-25 02:38] VITALS: BP 100/52
[2023-12-25 04:02] VITALS: BP 101/90
--- NOTE | 2023-12-25 04:10 | PTCARENOTE ---
Pt received at beginning of shift sleeping. AAOx3. VSS. Afebrile. SR/BBB/occas PVC on CM rate 70's-80's. POX 96%. Continues with brick colored urine. Pt denies any pain or discomfort. No change from previous assessment. Turns self in bed. Is using
call zavala overnight which remains within reach. Will continue to monitor.
[2023-12-25 05:40] LABS: % Basophils 0.3 % (0-2); % Eosinophils 0.1 % (0-6); % Immature Granulocytes 0.3 % (0-0.5); % Lymphocytes 21.7 % (20.5-51.1); % Monocytes 10.8 % (1.7-9.3); % Neutrophils 66.8 % (42.2-75.2); Absolute Lymphocytes 1.7 10^3/uL (1.2-3.4); Absolute Monocytes 0.9 10^3/uL (0.1-0.6); Absolute Neutrophils 5.4 10^3/uL (1.4-6.5); Hematocrit 39.5 % (39.0-52.0); Hemoglobin 13.5 g/dL (13.0-18.0); Mean Corp Hgb Conc. 34.2 g/dL (33.0-37.0); Mean Corpuscular Hgb 28.5 pg (27.0-31.0); Mean Corpuscular Volume 83.3 fL (80.0-94.0); Mean Platelet Volume 10.5 fL (7.4-10.4); Nucleated Red Blood Cells % 0.3 % (-); Platelet Count 143 10^3/uL (130-400); Red Blood Cell Count 4.74 10^6/uL (4.70-6.10); Red Cell Dist. Width 18.1 % (11.5-14.5)
[2023-12-25 05:55] VITALS: BMI 21.1
[2023-12-25 06:29] LABS: Blood Urea Nitrogen 77 mg/dl (9-20); Calcium 9.5 mg/dl (8.4-10.2); Carbon Dioxide 23 mmol/L (22-30); Chloride 97 mmol/L (98-107); Estimated Creatinine Clearance 23 ml/min; Glucose 82 mg/dl (70-99); Potassium 5.3 mmol/L (3.5-5.1); Sodium 133 mmol/L (135-145); eGFR 29.17
--- NOTE | 2023-12-25 09:35 | PTCARENOTE ---
Pt discussed plan with Drs. Rojas and Be, wants to leave AMA. Risks discussed at length, pt insistent. Left approx 12:59.
[2023-12-25] MEDS: PACERONE 400 MG PO (10:31)
--- NOTE | 2023-12-25 10:31 | W.PN.CD ---
Today's Communication / Plan
-
worsening TAVO: discussed u/s kidneys/bladder, but patient wants to leave AMA
-he understands high risk of with leaving AMA, discussed with RN and hospitalist in room
on discharge, would recommend amiodarone 400mg daily; and lasix 20mg daily to start Wednesday
Impression / Plan
-
Impression: 83M with CM, EF 10% AF, MR s/p MVRe, Hx LA thrombus, NSVT admitted with HFrEF
Plan
Hypotension - after spironolactone, furosemide, and bisoprolol.
- he has been intolerant to BB at least three times
-improved: s/p levophed
TAVO: worsening
-stopped aldactone
-holding lasix
-discussed u/s kidneys/bladder, but patient wants to leave AMA
-he understands high risk of with leaving AMA, discussed with RN and hospitalist in room
Hematuria
-recurrent with [facility]: stopped eliquis. High risk situation with KD thrombus. Patient understands risk of CVA.
NSVT
- added amiodarone: load 400mg tid while inpatient, then d/c on 400mg daily
Acute on chronic HFrEF (EF 10%):
- weight is near goal and he can lay flat without dyspnea
- GDMT Hx:
������ �- He cannot tolerate HF BB (reviewed [facility] notes, and he had the same problem).
������ �- in 2019, he was able to tolerate enalapril 2.5 po qd
������ �- in 2019, he was intolerant to eplerenone (Headache)
-he declines farxiga
-he does not tolerate GDMT
-lasix held for TAVO
LA thrombus
- he stopped warfarin on his own while in [facility] (perhaps around 2019)
- He stopped apixaban two weeks ago due to hematuria
-we tried resuming at 2.5mg bid: recurrent hematuria. Now stopped again.
AF - currently NSR
Severe MR - [place] looks good
Urinary retention - Mr. Moreau feels he went downhill with BPH meds, but it seems more coincidental
Dispo
- Dr Lucero had long conversation regarding his diagnosis and prognosis. Explained that he has a profoundly weak heart and has not responded well to standard treatment. We could escalate to inotropes/pressors (probably require amiodarone as
well). Alternatively, we could pivot to hospice care. He asked questions and seems to understand. Unfortunately, his and family moved to [place] and he would like to join them [place] (clear out his storage room/hotel and take a train down). High
likelihood of going poorly - at the least, he would likely require admission in [place] when he got down and, at the worst, he would have a HF or before or during the trip.
- Called his at his request -voicemail
- Mr. Moreau will think about his plans, but in the meantime, we will treat his hypotension with norepinephrine and add amiodarone for his NSVT.
Subjective:
Hematuria continues. No chest pain.
Data:
�������TTE Sep 15: EF 10-15%, severe ONEL, bio MVR OK, mod TR with PASP 51 mmHg
�������TTE/NEVAEH Oct 08: EF 10-15%, 4 chamber dilation, LA thrombus, bio MVR OK, moderate TR
CT Oct 08: LA thrombus attached to LA clip
Physical Exam
Vital Signs/Labs
Vital Signs
Temp Pulse Resp BP Pulse Ox
97.5 F 67 13 101/90 96
12/25/23 07:20 12/25/23 08:00 12/25/23 08:00 12/25/23 04:02 12/24/23 22:00
12/24/23 12/25/23 12/26/23
06:59 06:59 06:59
Actual Weight 62.5 kg 62.9 kg
05/11/24 05:45
12/25/23 05:45
Magnesium 2.1 mg/dl (1.6-2.3) 12/21/23 05:59
12/16/23
14:25
Pj[id number] Pept [id number]
Physical Exam
Constitutional: No acute distress
EENT: Moist mucous membranes
Cardiovascular: Rhythm & rate is regular, Pedal edema present, JVD present and Systolic murmur present
Respiratory: Respiratory effort normal and Lungs clear to auscul.
GI: Soft and Distention absent
Neuro/Psych: AO x 3
Data Reviewed
-
Date of Service: December 25, 2023
EKG: Other (Tele: SR, PVC's)
Labs: Labs Reviewed by me
--- NOTE | 2023-12-25 11:09 | W.PN.HOSP.TC ---
Today's Communication/Plan
-
Normal saline 250 mL at 40 mill per hour 1 bag
Continue to hold Lasix and Eliquis
Watch hematuria
Ultrasound of the kidney and bladder
Urinalysis with culture
Urology evaluation
If patient decides to leave AGAINST MEDICAL ADVICE please notify urology
Assessment / Plan
Assessment / Plan
83y M with PMH significant for CHFrEF who presents to ED complaining of 2 weeks of weight gain, fatigue and increased edema.
He stated that he was feeling well after the hospitalization here in September. He had frequency of urination and saw Dr. Mcgrath. He was placed on Macrobid after cystoscopy along with finasteride and Flomax. Patient stated that ever since then he
has gained weight and he stopped taking all the medicines last week. He stated he gained 15 pounds at home
CVS: S1-S2 normal, sm at apex
Chest: rales left base, Decreased breath sounds right base
Abdomen: Soft, NT / Bowel sounds present
Extremities: pedal edema ,normal pulses
PEOPLE MANAGER: Non focal exam
CXR: Progressive moderate right pleural effusion. Suspect trace left pleural effusion. Stable cardiomegaly. Stable mild vascular congestion.
# Frequent nonsustained VT's
-Patient started on bisoprolol. Did not tolerate and dropped BP. BB Stopped.
-Amiodarone started
-VT better
-Plan is to switch to amiodarone 200 mg daily at discharge
# Hematuria
-Holding Eliquis-still persists
-Hemoglobin stable
-Check ultrasound of the kidneys and bladder
-Urinalysis reflex to culture
-Urology evaluation requested
-Completed 1 month of Macrobid, patient does not want to go back on Flomax and Proscar for now.
- I discussed that above medicines do not cause fluid retention however he does not want to take it now. Blood pressure will not allow alpha blockers
# Acute kidney injury-PVR 280 mL
-Will give to 50 mill of IV fluids
-Ultrasound of the kidney and bladder
-Continue to hold Lasix
#Acute on Chronic HFrEF
Mitral Valve Disease s/p BioMVR
- BP marginal in the ED and patient was started on Levophed for BP support soon after admission.
- Levophed just stopped around on 12/16/23 restarted 12/22/2023 with amiodarone. Stopped now
- Lasix placed on hold as creatinine up.
- Cardiology following
- Low-dose of beta-jasmine and Aldactone added however blood pressure could not tolerate it. Beta-jasmine stopped,Aldactone also stopped.
- Received 250 mL of fluid on 12/21/2023 because of low blood pressure
- GDMT extremely difficult because of tenuous blood pressure and patient refusal.
- He is refusing Farxiga
# Non-NM troponin elevation
# Atrial Mass / Lesion
- Suspected thrombus on last admission -potential left atrial clip
- Patient had stopped Coumadin in [place] in 2019
- Was started on Eliquis , but this was discontinued 2 weeks ago due to hematuria which has since resolved. Now restarted
- Held as he has Hematuria again
# Severe mitral regurgitation-HX bioprosthetic MVR in 2017 [place]
# Paroxysmal atrial fibrillation-in sinus rhythm now
-Diagnosed in 2017
-Not on any rate controlling agents
# NSVT-not a candidate for ICD per cardiology notes
# History of right pleural effusion in 2017 status post removal of 1250 mL of fluid
Pathology negative for malignancy
S/P Thoracentesis 12/19/23 -right with 900 ml fluid removed.
# FULL code
# DVT prophylaxis- SCD
D/W Cards at bedside
Discussed with nursing at bedside
Prognosis guarded given arrhythmias and poor ejection fraction. Antiarrhythmics initiated now. Goal-directed medical therapy is not possible because of patient's blood pressure
Hematuria precludes using Eliquis
Patient expressed wish to leave the hospital today. Dr. Rojas and I made it very clear to him that it is not a good idea. He is aware that he will be leaving AGAINST MEDICAL ADVICE if he decides to leave and not going to be discharged. All
ramifications of leaving AGAINST MEDICAL ADVICE including were discussed with the patient. His heart condition is tenuous and patient is aware that his kidney function is not going well and also he has hematuria. He states that he needs to
take care of some business local before he goes to [place]. I requested permission to talk to his family which he declined. ' Not talking to anybody but me'. I encouraged him to communicate with his family that he is leaving. Dr. Rojas discussed
with the patient he should get checked into the hospital if he does not feel well. I also discussed with the patient that he can come back here if he does not feel well if he leaves.
One of his complaints was he was being stuck daily for blood work. Offered a midline/PICC line so he does not need to be stuck every day. I asked if we can do anything to make him comfortable that he will stay to take care of his medical needs.
He declined .
The patient is leaving he will need to sign the AMA form. We will still send medicines for him. Lasix 20 mg daily which he is aware needs to be started on Wednesday. And not take it tomorrow. Also amiodarone will be 200 mg daily.
High risk situation
time spent 55 min
Anticipated Discharge: > 48 hours
Subjective/Interval History
-
Date of Service: December 25, 2023
Objective Data
-
Labs:
Laboratory Results
12/25/23
05:45
WBC 8.0
Hgb 13.5
Hct 39.5
Plt Count 143
Sodium 133 L
Potassium 5.3 H D
Chloride 97 L
Carbon Dioxide 23
BUN 77 H
Creatinine 2.2 H
Glucose 82
Calcium 9.5
Vital Signs:
Vital Signs
Temp Pulse Resp BP Pulse Ox
97.5 F 64 13 103/69 96
12/25/23 07:20 12/25/23 10:31 12/25/23 08:00 12/25/23 10:31 12/24/23 22:00
I&O
12/24/23 12/25/23 12/26/23
06:59 06:59 06:59
Intake Total 880 / 880 240 / 240
Output Total 150 / 150
Balance 880 / 880 90 / 90
[2023-12-25] MEDS: NSS 250 IV (11:19)
--- NOTE | 2023-12-25 12:55 | W.PN.UPDATE ---
Addendum entered and electronically signed by Xiao Lr MD 12/25/23 14:07:
Dictation- [id number]
Original Note:
Update Note
Progress Note Update
Pt decided to leave against medical advise knowing complications including ..
He is capable of making decisions. Lucid awake alert.
Signed papers
Cancel Urology consult as he is leaving.
Scripts sent to pharmacy
lab slip given to check CBC and BMP
--- NOTE | 2023-12-27 13:37 | W.HF.CON ---
Heart Failure
- LV Function
Left ventricular function study result: LV Ejection fraction </= 35%
Ejection Fraction Percentage: 15-20
- ARNI
Patient already on ARNI: No
Heart Failure ARNI Contraindication: Acute Renal Failure, Hypotension
- ACEI/ARB
Patient already on ACEI/ARB: No
Heart Failure ACEI/ARB Contraindication: Acute Renal Failure, Hypotension
- Beta Titus
Patient already on Evidence Based Beta Titus: No
Heart Failure Evidence Based Beta Titus: Hypotension
- Mineralocorticord Receptor Antagonist
Patient already on MRA: No
Heart Failure MRA Contraindication: Acute Renal Insufficiency, Hypotension
- SGLT-2 Inhibitor
Patient already on SGLT-2 Inhibitor: No
Heart Failure SGLT-2 Inhibitor Contraindication: Patient Refusal
- Afib Anticoagulation
Patient already on Anticoagulation for Afib: No
Heart Failure Afib Anticoagulation Contraindication: Hemorrhagic Tendencies (hematuria)
- NYHA CHF Classification
NYHA CHF Classification Level: Class III - Symptoms w/ min exertion, interferes w/ nml daily activity
- ACC/AHA Stage
ACC/AHA Stage: Stage D: Advanced Heart Failure
== END 2023-12-25 12:59 | disposition left against medical advice (07) | DRG 292 ==
LOC: IMU 20:55
PROVIDERS: Emergency Medicine; Internal Medicine; Internal Medicine Cardiovascular Disease; Nurse Practitioner; Radiology Vascular & Interventional Radiology; ADMITTING PHYSICIAN Hospitalist; ATTENDING PHYSICIAN Hospitalist; CONSULT PHYSICIAN Internal Medicine Cardiovascular Disease; EMERGENCY PHYSICIAN Emergency Medicine
PROC: 0W993ZZ Drainage of Right Pleural Cavity, Percutaneous Approach (ICD-10-PCS; 2023-12-20)
DX: I50.23 Acute on chronic systolic (congestive) heart failure (principal); I42.9 Cardiomyopathy, unspecified; I47.20 Ventricular tachycardia, unspecified; I5A Non-ischemic myocardial injury (non-traumatic); J90 Pleural effusion, not elsewhere classified; N17.9 Acute kidney failure, unspecified; I51.3 Intracardiac thrombosis, not elsewhere classified; N40.1 Benign prostatic hyperplasia with lower urinary tract symptoms; I48.0 Paroxysmal atrial fibrillation
CPT/HCPCS: 88305; 32555; 71045; 71046; 80048; 80053; 82150; 82945; 83615; 83735; 83880; 84100; 84155; 84157; 84443; 84478; 84484; 85025; 85027; 87015; 87070; 87205; 88112; 89051; 93005; 96374; 97116; 97163; 97167; 97530; 97535; 99285